=== PATIENT | female | born 1970 | race Caucasian/White ===

== ENCOUNTER 2021-11-10 15:53 | Emergency (ER) | payer OTHER, SELFPAY ==
[2021-11-10] VITALS (22 sets, daily range): BP systolic 136–168; BP diastolic 78–111; PULSE 78–93; RESP 13–21; TEMP 36.7–36.9; O2SAT 92–100
--- NOTE | 2021-11-10 16:14 | ECG_ITS ---
Measurements Intervals [place] Rate: 91 P: 49 WY: 179 QRS: -8 QRSD: 93 T: 87 QT: 331 QTc: 409 Interpretive Statements SINUS RHYTHM DELAYED PRECORDIAL R/S TRANSITION BORDERLINE ST-T WAVE ABNORMALITY- LAT/HIGH LAT LEADS BORDERLINE ECG NO PREVIOUS ECG AVAILABLE FOR COMPARISON Electronically Signed On 11-11-2021 8:25:35 CDT by Gerard Cartagena D.O.
[2021-11-10 16:58] LABS: Basophils Percent Auto 0.2 % (0.2-1.2); Hematocrit 39.8 % (37.0-47.0); Hemoglobin 13.1 g/dL (12.0-15.0); Immature Granulocyte Absolute 0.08 K/mm3 (0.00-0.031); Immature Granulocyte Percent A 0.6 % (0-0.5); Lymphocytes Absolute Auto 1.39 K/mm3 (0.9-3.2); Lymphocytes Percent Auto 9.7 % (18.3-44.2); Mean Corpuscular HGB Conc 32.9 g/dl (32-36); Mean Corpuscular Hemoglobin 30.8 pg (26-34); Mean Corpuscular Volume 93.4 fl (80-100); Mean Platelet Volume 10.7 fl (7.4-10.4); Monocytes Absolute Auto 0.7 K/mm3 (0.1-0.6); Monocytes Percent Auto 4.8 % (2.6-8.5); Neutrophils Absolute Auto 12.1 K/mm3 (1.3-6.7); Neutrophils Percent Auto 84.7 % (45.5-73.1); Platelet Count Result 200 k/mm3 (150-375); Red Blood Count 4.26 M/mm3 (4.2-5.4); Red Cell Distribution Width 12.9 % (11.5-14.5); White Blood Count 14.3 K/mm3 (4.5-10.0)
--- NOTE | 2021-11-10 17:14 | ED.EXTPRO ---
HPI - Extremity Problem General Chief complaint: Extremity Problem,Nontraumatic Stated complaint: right leg pain, tingling Time Seen by Provider: 11/10/21 17:00 History of Present Illness HPI Narrative: 51-year-old female with a history of lupus and thyroid disease presents the emergency room for complaints of right lower extremity pain for 10 days and numbness and tingling to her right hand that began this morning. Patient denies any injury or trauma. Patient reports gradual onset of the right lower extremity pain, that has prevented her from ambulating without assistance. Patient does have a history of a DVT, occurred about 8 years ago when she completed a 6month anticoagulant therapy. Patient states her right lower extremity was swollen and red this morning prior to Tylenol administration. Patient also complains of numbness and tingling to all 5 of her fingers on her right hand that radiate into her her elbow. Related Data Allergies Allergy/AdvReac Type Severity Reaction Status Date / Time aspirin Allergy Unknown Nausea and Verified 11/10/21 16:13 Vomiting Review of Systems Review of Systems: CONSTITUTIONAL: Denies fever, chills, or sweats. EYES: Denies visual changes, redness, or discharge. ENT: Denies rhinorrhea, congestion, sore throat, or otalgia. CARDIOVASCULAR: Denies chest pain, palpitations, or edema. RESPIRATORY: Denies cough or dyspnea. GASTROINTESTINAL: Denies abdominal pain, nausea, vomiting, or diarrhea. GENITOURINARY: Denies dysuria or hematuria. SKIN: Denies rash or itching. MUSCULOSKELETAL: Reports right lower extremity pain NEUROLOGIC: Reports paresthesias in right hand PSYCHIATRIC: Denies anxiety or depression. Exam Narrative: GENERAL: Well-appearing, well-nourished, no physical limitations, and in no acute distress. HEAD: Normocephalic, atraumatic. EYES: Conjunctivae normal, PERRLA and EOMI. CHEST: Clear to auscultation. No respiratory distress. No wheezes rales or rhonchi. No tenderness. HEART: Regular rate and rhythm. No murmur heard. Normal peripheral pulses. ABDOMEN: Soft, nontender, morbidly obese, normal active bowel sounds. EXTREMITIES: Right lower extremity: Tenderness along the medial surface of the calf, lower extremity is mildly erythematous, pulses are present distally no edema SKIN: Warm, dry, no rash. NEURO: No focal deficits. Alert and oriented x3. MAEW. CN's II-XI intact bilaterally PSYCH: Cooperative. Normal mood and affect. Course Vital Signs Vital signs: Vital Signs Temperature 36.9 C 11/10/21 16:04 Pulse Rate 93 11/10/21 16:04 Respiratory Rate 14 11/10/21 16:04 Blood Pressure 152/85 H 11/10/21 16:04 Pulse Oximetry 96 11/10/21 16:04 Oxygen Delivery Room Air 11/10/21 16:04 Temperature 36.8 C 11/10/21 19:15 Pulse Rate 80 11/10/21 19:15 Respiratory Rate 16 11/10/21 19:15 Blood Pressure 154/111 H 11/10/21 19:15 Pulse Oximetry 96 11/10/21 19:15 Oxygen Delivery Room Air 11/10/21 16:04 MDM - Extremity (Nontraumatic) MDM Narrative Medical decision making narrative: 51-year-old female presented the emergency room with complaints of right lower leg pain. Patient has a history of DVTs and uncontrolled lupus. WBC was elevated as was the D-dimer. Ultrasound was unavailable so we will cover patient with Keflex and Eliquis until ultrasound can be obtained. Lab Data Result diagrams: 11/10/21 16:53 11/10/21 16:53 Labs: Lab Results 11/10/21 11/10/21 11/10/21 Range/Units 16:52 16:52 16:53 WBC 14.3 H (4.5-10.0) K/mm3 RBC 4.26 (4.2-5.4) M/mm3 Hgb 13.1 (12.0-15.0) g/dL Hct 39.8 (37.0-47.0) % MCV 93.4 (80-100) fl MCH 30.8 (26-34) pg MCHC 32.9 (32-36) g/dl RDW 12.9 (11.5-14.5) % Plt Count 200 (150-375) k/mm3 MPV 10.7 H (7.4-10.4) fl Immature Gran % (Auto) 0.6 H (0-0.5) % Neut % (Auto) 84.7 H (45.5-73.1) % Lymph % (Auto) 9.7 L (18.3-44.2) % Mo
[2021-11-10 17:17] LABS: Alanine Aminotransferase 17 U/L (6-35); Albumin Level 4.1 g/dL (3.5-5.1); Alkaline Phosphatase 100 U/L (38-126); Anion Gap 5 mmol/L (8-16); Aspartate Amino Transferase 22 U/L (14-36); Bilirubin,Total 1.7 mg/dL (0.2-1.3); Blood Urea Nitrogen 11 mg/dL (7-17); Calcium 8.6 mg/dL (8.4-10.2); Carbon Dioxide 33 mmol/L (22-30); Chloride 97 mmol/L (98-107); Estimated CRCL calculation 95 ml/min; Estimated Glomerular Filt Rate > 60; Glucose 112 mg/dL (65-110); Potassium 3.5 mmol/L (3.4-5.0); Sodium 135 mmol/L (137-145)
[2021-11-10 17:57] LABS: CRP 24.2 mg/dL (<1.0)
[2021-11-10 18:14] LABS: Appearance Urine Clear (Clear); Bilirubin Urine Negative (Negative); Blood Urine Negative (Negative); Color Urine Yellow (Yellow); Glucose Urine UA Negative (Negative); Ketones Urine Negative (Negative); Leukocyte Esterase Ur Negative LEU/UL (Negative); Nitrate Urine Negative (Negative); Protein Urine Trace mg/dL (Negative); Specific Grav Ur <= 1.005 (1.001-1.035); Urobilinogen Urine 0.2 mg/dL (<2.0)
[2021-11-10 18:29] LABS: D Dimer 0.72 ug/mL (<0.48)
[2021-11-10 18:38] LABS: Add Urine Microscopic? YES
[2021-11-10 18:39] LABS: RBC Urine None seen /hpf (0-2); WBC Urine 0-3 /hpf
[2021-11-10 18:40] LABS: Bacteria Urine Trace /hpf; Squamous Epithelial Cell Urine Few /hpf (Few)
[2021-11-10 18:51] LABS: Erythrocyte Sedimentation Rate 44 mm/hr (0-20)
[2021-11-10 19:18] LABS: Lactic Acid Reflex 0.6 mmol/L (0.7-2.0)
[2021-11-10] MEDS: methylPREDNISolone SOD SUCC 125 MG VIAL IV PUSH (19:41)
[2021-11-10] MEDS: APIXABAN 5 MG TABLET PO (20:25)
--- NOTE | 2021-11-10 20:38 | PC.NURSE ---
rx for US sent home with patient. pt informed she needed to bring with to US.
== END 2021-11-10 20:39 | disposition home or self-care (01) ==
PROVIDERS: Emergency Medicine; Emergency Provider Nurse Practitioner Family; PCP Family Medicine
DX: R60.0 Localized edema (principal)
CPT/HCPCS: 36415; 51701; 80053; 81001; 83605; 85025; 85380; 85652; 86140; 93005; 96365; 96375; 99284; A9270; J0696; J2930

== ENCOUNTER 2021-11-12 06:49 | Outpatient (CLI) | payer OTHER, SELFPAY ==
--- NOTE | ~2021-11-12 | US_ITS ---
EXAMINATION: US venous doppler LE RT DATE: 11/12/2021 08:38 INDICATION: Right lower limb pain and paresthesias TECHNIQUE: Grayscale ultrasound images without and with compression and Doppler ultrasound images of the right lower extremity veins were obtained. COMPARISON: None. FINDINGS: The visualized portions of right common femoral vein, profunda (deep) femoral vein, femoral vein, pop liteal vein, peroneal trunk, posterior tibial veins, peroneal veins, gastrocnemius vein and greater s aphenous vein outflow are patent. IMPRESSION: 1. No deep venous thrombosis in the right lower limb. Reviewed, dictated and finalized at location A.
== END 2021-11-12 06:50 | disposition home or self-care (01) ==
PROVIDERS: PCP Family Medicine; Visit Provider Family Medicine
DX: R22.41 Localized swelling, mass and lump, right lower limb (principal); R20.2 Paresthesia of skin
CPT/HCPCS: 93971

== ENCOUNTER 2021-12-30 14:03 | Outpatient (CLI) | payer OTHER, SELFPAY ==
--- NOTE | ~2021-12-30 | US_ITS ---
US thyroid INDICATION: Unspecified disorder of the thyroid gland TECHNIQUE: Real-time sonographic images of the thyroid gland were obtained. COMPARISON: No prior studies for comparison. FINDINGS: The right thyroid lobe measures 5 x 2.1 x 1.8 cm. The left thyroid lobe measures 4.2 x 2 x 1.6 cm. Thyroid gland is diffusely heterogeneous, although no discrete mass identified. There is inc reased vascularity in both lobes. IMPRESSION: 1. Mildly prominent heterogeneous thyroid gland with increased vascularity, most likely multinodular goiter. No discrete mass.. Reviewed, dictated and finalized at location B. IMPRESSION: 1. Mildly prominent heterogeneous thyroid gland with increased vascularity, mo st likely multinodular goiter. No discrete mass..
== END 2021-12-30 14:04 | disposition home or self-care (01) ==
PROVIDERS: PCP Family Medicine; Visit Provider Physician Assistant
DX: E07.9 Disorder of thyroid, unspecified (principal); E04.9 Nontoxic goiter, unspecified
CPT/HCPCS: 76536

== ENCOUNTER 2022-01-03 00:39 | Day surgery (SDC) | payer OTHER, SELFPAY ==
[2021-12-19 14:49] VITALS: BMI 54.3
[2022-01-03 06:30] VITALS: BP 180/100; PULSE 79; RESP 18; TEMP 36.2; O2SAT 95
[2022-01-03] MEDS: LACTATED RINGERS 1,000 ML 150 ML IV CONT (06:40)
--- NOTE | 2022-01-03 07:24 | WPDANESEPPF ---
Anes - Initial Pre Proc Eval Procedure: Operation Date: 01/03/22 07:30 Proposed Procedures p Screening Colonoscopy - Artemio Tolentino MD Date/Time: 01/03/22 07:24 Surgeon: Artemio Tolentino MD Pre Op Diagnosis: neoplasm screening Patient Data Age: 51 Gender: F Height: 1.6 m Weight: 138.6 kg Last Vital Signs Temp 97.1 F L 01/03/22 06:30 Pulse 79 01/03/22 06:30 Resp 18 01/03/22 06:30 BP 180/100 H 01/03/22 06:30 Pulse Ox 95 01/03/22 06:30 O2 Del Method Room Air 01/03/22 06:30 Allergies Allergy/AdvReac Type Severity Reaction Status Date / Time aspirin Allergy Unknown Nausea and Verified 01/03/22 06:26 Vomiting Home Medications Medication Instructions Recorded Confirmed Type diphenoxylate-atropine 2.5 1 tablet PO TID PRN diarrhea #90 12/23/21 01/03/22 Rx mg-0.025 mg tablet (Lomotil) tabs lisinopril 10 mg tablet 10 mg PO DAILY #90 tabs 12/25/21 01/03/22 Rx levothyroxine 100 mcg tablet 100 mcg PO DAILY #30 tabs 12/27/21 01/03/22 Rx Patient hx anesthesia problems: none Family hx anesthesia problems: none Results Review: All pre-operative results and documents have been reviewed as part of the pre-operative evaluation. [facility] Family History Family History Mother Hypertension Family history of elevated blood lipids Family history of diabetes mellitus in first degree relative Family history of renal failure, Onset Age: 79 Patient's mother is Social History Social History Social History: Smoking status: Former smoker Second hand tobacco smoke exposure: No Smoking end date: 03/09/15 Alcohol intake: never Substance use: never Substance use type: does not use Living arrangements: with family Additional occupation/education comments: Disabled Gender identity (if verbalized by the patient): Female Sexual Orientation (if Verbalized by the Patient): Straight or Heterosexual Spiritual care concerns: No Anes - Eval Final PreProcedure Day of Procedure 01/03/22 07:24 Patient weight: super morbidly obese Heart: regular rate and rhythm Lungs: clear to auscultation Airway: Mallampati scale class III Neurological: alert and oriented Last oral intake: >/= 8 hours ASA classification: IV Emergent: no Anesthetic plan: proceed Anesthesia type and monitoring: general GIVS and standard monitoring Results Review: All pre-operative results and documents have been reviewed as part of the pre-operative evaluation. Informed Consent: The patient's anesthetic plan and its attendant risks and benefits were discussed with the patient/family/POA. Questions were solicited and answers provided to the satisfaction of the patient/family/POA.
--- NOTE | 2022-01-03 07:24 | PM.HPGS ---
History of Present Illness History of Present Illness Consent: Risks, benefits, and alternatives have been discussed and questions answered. Patient agrees to proceed with procedure. Chief complaint: neoplasm screening Narrative: Praveena Mckenzie is a 51 year old female here for screening colonoscopy Review of Systems Constitutional: Constitutional: Denies headache(s) and Denies weakness Eyes: Eyes: Denies blurry vision ENT: Reports Normal hearing present, Denies headache(s) and Denies neck pain Cardiovascular: Cardiovascular: Denies chest pain and Denies dyspnea Respiratory: Respiratory: Denies dyspnea Gastrointestinal: Gastrointestinal: Reports no additional gastrointestinal complaints Genitourinary: Genitourinary: Denies dysuria Musculoskeletal: Musculoskeletal: Denies neck pain Integumentary/Breasts: Skin/Breast: Denies dry skin Neurologic: Reports Normal hearing present, Denies headache(s) and Denies weakness Psychiatric: Psychiatric: Denies anxiety Endocrine: Endocrine: Denies change in body appearance Hematologic/Lymphatic: Hematologic/Lymphatic: Denies easy bleeding Allergic/Immunologic: Allergic/Immunologic: Denies urticaria PMFSH Family History Family History Mother Hypertension Family history of elevated blood lipids Family history of diabetes mellitus in first degree relative Family history of renal failure, Onset Age: 79 Patient's mother is Social History Social History Social History: Smoking status: Former smoker Second hand tobacco smoke exposure: No Smoking end date: 03/09/15 Alcohol intake: never Substance use: never Substance use type: does not use Living arrangements: with family Additional occupation/education comments: Disabled Gender identity (if verbalized by the patient): Female Sexual Orientation (if Verbalized by the Patient): Straight or Heterosexual Spiritual care concerns: No Meds Home Medications and Allergies Home Medications Medication Instructions Recorded Confirmed Type diphenoxylate-atropine 2.5 1 tablet PO TID PRN diarrhea #90 12/23/21 01/03/22 Rx mg-0.025 mg tablet (Lomotil) tabs lisinopril 10 mg tablet 10 mg PO DAILY #90 tabs 12/25/21 01/03/22 Rx levothyroxine 100 mcg tablet 100 mcg PO DAILY #30 tabs 12/27/21 01/03/22 Rx Allergies Allergy/AdvReac Type Severity Reaction Status Date / Time aspirin Allergy Unknown Nausea and Verified 01/03/22 06:26 Vomiting Vital Signs Vital Signs - 24 hr 01/03/22 06:30 Temperature 97.1 F L Pulse Rate 79 Respiratory Rate 18 Blood Pressure 180/100 H Pulse Oximetry 95 Oxygen Delivery Room Air Exam Const: General: comfortable and no acute distress HENMT: Face/Nose/Sinus: Normal nares present Eyes: General: appearance normal, both eyes and all related structures Neck: Neck: no JVD Resp: Auscultation: clear to auscultation bilaterally Cardio: Rate: regular rate Rhythm: regular rhythm GI: Inspection: non-distended GI Palp: Yes Soft to palpation Skin: General skin exam: normal color Neuro: General: gait normal Speech: normal speech Extrem: General: normal to inspection Psych: Mental Status: mental status grossly normal Assessment and Plan Assessment and plan (1) Colon cancer screening: Code(s): Z12.11 - Encounter for screening for malignant neoplasm of colon Status: Acute Assessment and Plan: colonoscopy
[2022-01-03 07:51] VITALS: BP 153/93; PULSE 75; RESP 21; O2SAT 100
[2022-01-03 08:01] VITALS: BP 173/108; PULSE 76; RESP 14; O2SAT 100
[2022-01-03 08:11] VITALS: BP 187/118; PULSE 73; RESP 18; O2SAT 100
== END 2022-01-03 08:17 | disposition home or self-care (01) ==
PROVIDERS: PCP Family Medicine; Visit Provider Internal Medicine Gastroenterology
PROC: 0DJD8ZZ Inspection of Lower Intestinal Tract, Via Natural or Artificial Opening Endoscopic (ICD-10-PCS; CPT 45378; principal; 2022-01-03 07:30)
DX: Z12.11 Encounter for screening for malignant neoplasm of colon (principal); K57.30 Diverticulosis of large intestine without perforation or abscess without bleeding; D12.4 Benign neoplasm of descending colon; K64.8 Other hemorrhoids; Z87.891 Personal history of nicotine dependence; E66.01 Morbid (severe) obesity due to excess calories; Z68.43 Body mass index [BMI] 50.0-59.9, adult
CPT/HCPCS: 45385; 88305; J2704; J7120

== ENCOUNTER 2022-05-04 17:24 | Inpatient (IN) | payer OTHER, SELFPAY ==
[2022-05-04] VITALS (8 sets, daily range): BP systolic 116–168; BP diastolic 82–97; PULSE 103–119; RESP 18–20; TEMP 36.8–39.4; O2SAT 87–99
--- NOTE | ~2022-05-04 | CT_ITS ---
EXAMINATION: CTA brain carotid DATE: 05/07/2022 10:26 INDICATION: Left facial swelling and pain. Weakness. TECHNIQUE: Computed tomographic angiography (CTA) of the head was performed without and with 100 mL O mnipaque-350 intravenous contrast. CTA of the neck was performed with intravenous contrast. Automated exposure control and iterative reconstruction technique were employed. The dose-length product was 1 771.58 mGy-cm. Maximum intensity projection and volume rendered 3D-reconstructions were created by susana sandoval technologist on a separate workstation. COMPARISON: Head CT 05/04/2022, brain MRI 05/07/2022 FINDINGS: HEAD CTA: There is no intracranial hemorrhage, acute infarction, or abnormal intracranial mass lesion . The ventricles are normal in size. The orbits are normal. The paranasal sinuses are clear. The mast oid air cells are normal. The vertebral arteries are codominant. There is no significant stenosis of basilar artery or the posterior cerebral arteries. There is no significant stenosis of the intracrani al internal carotid arteries or anterior or middle cerebral arteries. Anterior communicating artery i s normal. Posterior communicating arteries are not identified. There is no aneurysm. NECK CTA: There is mild scarring at left lung apex. There are two 3 mm nodules in right upper lobe, l ikely benign. There are no pathologically enlarged lymph nodes. There is subcutaneous fat stranding i n the left posterior neck and inferior to the left ear, consistent with edema versus inflammation. Th ere is no significant stenosis of the vertebral arteries. There is mild plaque in the proximal programming intern al carotid arteries. There is 0% stenosis of the proximal right internal carotid artery relative to normal distal artery lumen diameter (NASCET criteria). There is 0% stenosis of the proximal left inte rnal carotid artery relative to normal distal artery lumen diameter. There is mild cervical spondylos is. IMPRESSION: 1. Normal brain. 2. No aneurysm or significant intracranial arterial stenosis. 3. 0% stenosis of the proximal internal carotid arteries relative to normal distal artery lumen diame ters (NASCET criteria). Reviewed, dictated and finalized at location A. IAGE AND FAMILY THERAPIST IMPRESSION: 1. Normal brain. 2. No aneurysm or significant intracranial arterial stenosis. 3. 0% stenosis of the proximal internal carotid arteries relative to normal dis migue artery lumen diameters (NASCET criteria).
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
--- NOTE | ~2022-05-04 | MR_ITS ---
EXAMINATION: MR orbits face neck wo/w con DATE: 05/09/2022 13:54 INDICATION: Left eye blurry vision. TECHNIQUE: Magnetic resonance imaging (MRI) of the orbits was performed without and with 20 mL MultiH ance intravenous contrast. COMPARISON: Brain MRI 05/07/2022 FINDINGS: The extraocular muscles, optic nerves, optic chiasm, and ocular globes are normal. There is no abnormal mass. IMPRESSION: 1. Normal orbits. Reviewed, dictated and finalized at location A. L MAINFRAME DEVELOPER IMPRESSION: 1. Normal orbits.
--- NOTE | ~2022-05-04 | US_ITS ---
EXAMINATION:US venous doppler LE BI INDICATION:Leg pain and swelling TECHNIQUE: Multiple grayscale, color flow and Doppler images of the right and left lower extremity de ep venous systems were obtained and reviewed. COMPARISON:11/12/2021 FINDINGS: The common femoral, superficial femoral and popliteal veins demonstrate normal respiratory variation, augmentation and compressibility. Color flow is also seen within the posterior tibial, gr eater saphenous and profunda veins. The peroneal veins are not well visualized. IMPRESSION: 1: No lower extremity deep venous thrombosis. Reviewed, dictated and finalized at location L. ET MAKING MACHINE OPERATOR HELPER
--- NOTE | ~2022-05-04 | CT_ITS ---
EXAMINATION: CT cervical spine wo con DATE: 05/04/2022 21:21 INDICATION: pain TECHNIQUE: Computed tomography (CT) of the cervical spine was performed without intravenous contrast. Automated exposure control and iterative reconstruction technique were employed. The dose-length pro duct was 533.88 mGy-cm. COMPARISON: None. FINDINGS: Vertebral Body Alignment: Intact. . Craniocervical and atlantoaxial alignment: Moderate degenerative change. Alignment intact. Osseous structures/fracture: No evidence of a lytic or blastic process in the visualized spine. No e vidence of acute fracture. . Cervical soft tissues: The paraspinal soft tissues planes are maintained. Degenerative changes: Degenerative changes, without severe neural foraminal or central canal narrowin g. IMPRESSION: No acute fracture or traumatic malalignment in the cervical spine. Reviewed, dictated and finalized at location K. PROFESSIONAL
--- NOTE | ~2022-05-04 | MR_ITS ---
EXAMINATION: MR venography brain DATE: 05/09/2022 13:54 INDICATION: Headache. Left eye blurry vision. TECHNIQUE: Magnetic resonance venography (MRV) of the head was performed without intravenous contrast . COMPARISON: Brain MRI 05/07/2022, head CTA 05/07/2022 FINDINGS: The superior sagittal sinus, internal cerebral veins, vein of Minesh, straight sinus, transv erse sinuses, oblique sinuses, and internal jugular veins are patent. IMPRESSION: 1. Normal head MRV. Reviewed, dictated and finalized at location A. L CHECKER IMPRESSION: 1. Normal head MRV.
--- NOTE | ~2022-05-04 | MR_ITS ---
MRI of the brain Clinical History: Left-sided weakness Technique: Axial and sagittal T1-weighted images were acquired. These were followed by axial T2-weigh tu, diffusion weighted, gradient, and FLAIR images. Coronal thin cut T1-weighted and T2-weighted adrian ges were performed through the internal auditory canals. Following intravenous administration of 20 c c MultiHance gadolinium, T1-weighted fat-sat imaging was performed through the brain in the axial and coronal planes. Thin cut T1-weighted coronal and axial postcontrast imaging was also performed throu gh the internal auditory canals. Findings: No acute infarct, intracranial hemorrhage, or mass lesion identified. There are minimal chr onic white matter changes in the periventricular white matter. Ventricles and subarachnoid spaces are unremarkable. Orbits are unremarkable. Paranasal sinuses and m astoid air cells are clear. Major intracranial flow voids are grossly intact. Sagittal midline structures are intact. No abnormal mass lesion seen at the cerebellar pontine angle regions or internal auditory canals. No abnormal postcontrast enhancement seen. IMPRESSION: No intracranial hemorrhage, mass lesion, or acute infarct. Unremarkable internal auditory canals and CP angle regions. Minimal chronic white matter changes. Reviewed, dictated and finalized at location M. ING MACHINE OPERATOR IMPRESSION: No intracranial hemorrhage, mass lesion, or acute infarct. Unremarkable interna l auditory canals and CP angle regions. Minimal chronic white matter changes.
--- NOTE | ~2022-05-04 | XR_ITS ---
EXAM: XR humerus LT DATE: 05/04/2022 20:56 HISTORY: HIT HEAD ON CAR DOOR 3 DAYS AGO. SATES LT SIDE OF BODY HURTS . COMPARISON: None available. FINDINGS: Normal mineralization. No fracture or dislocation. No lytic or blastic lesion. Moderate AC joint hypertrophy, mild degenerative changes in the glenohumeral joint and elbow joint. No erosion o r periosteal change. Soft tissues within normal limits. IMPRESSION: No acute osseous finding in the left humerus. Reviewed, dictated and finalized at location K. FARM HELPER
--- NOTE | ~2022-05-04 | CT_ITS ---
EXAMINATION: CT brain wo con DATE: 05/04/2022 21:21 INDICATION: head injury, headache . TECHNIQUE: Computed tomography (CT) of the head was performed without intravenous contrast. The mA wa s adjusted according to patient size. Iterative reconstruction technique was employed. The dose-lengt h product was 605.33 mGy-cm. COMPARISON: None. FINDINGS: No acute intracranial hemorrhage or extra-axial fluid collection. No hydrocephalus, mass, or herniation. No acute ischemic infarct. Unremarkable dural venous sinus attenuation. No acute osseous abnormality. The aerated spaces are clear. IMPRESSION: No acute intracranial process. Reviewed, dictated and finalized at location K. OENGRAVING MACHINE OPERATOR/TENDER
--- NOTE | 2022-05-04 20:41 | PC.NURSE ---
Pt to imaging via stretcher at this time.
--- NOTE | 2022-05-04 21:02 | ED.GENADULT ---
HPI - General Adult General Chief complaint: Extremity Injury, Upper Stated complaint: shoulder and ear pain Time Seen by Provider: 05/04/22 20:09 Source: patient and RN notes reviewed Mode of arrival: wheelchair Limitations: no limitations History of Present Illness HPI narrative: This is a 52 year old female with history of morbid obesity who presents for evaluation of left side pain . Patient reports that 3 days ago her car door accidentally hit her head. She reports she initially felt fine other than mild headache. She reports she had some mild left shoulder pain. Today she has noticed left ear lobe pain and swelling. She also reports she is unable to move with out significant pain to her left shoulder today. She denies nausea, vomiting, sore throat, abdominal pain, fever or chills. She denies back pain and leg pain. Related Data Allergies Allergy/AdvReac Type Severity Reaction Status Date / Time aspirin AdvReac Unknown Nausea and Verified 05/05/22 13:28 Vomiting Review of Systems Constitutional: Constitutional: Denies weakness Cardiovascular: Cardiovascular: Denies syncope, Denies rapid heart rate, Denies irregular heart rhythm, Denies leg edema and Denies dyspnea Respiratory: Respiratory: Denies chest congestion, Denies hemoptysis, Denies excessive phlegm production and Denies dyspnea Gastrointestinal: Gastrointestinal: Denies abdominal pain, Denies hematochezia, Denies diarrhea and Denies vomiting Genitourinary: Genitourinary: Denies hematuria and Denies dysuria Musculoskeletal: Musculoskeletal: Reports myalgias (left side ), Reports arthralgias, Denies joint swelling, Denies loss of height and Denies muscle weakness Neurologic: Denies syncope, Reports headache(s), Denies focal weakness and Denies weakness [facility] Past Medical History Medical History Goiter Hypertension Lupus (systemic lupus erythematosus) Lymphedema Postcholecystectomy diarrhea Surgical History Surgical History Hx laparoscopic cholecystectomy Family History Family History Mother Hypertension Family history of elevated blood lipids Family history of diabetes mellitus in first degree relative Family history of renal failure, Onset Age: 79 Patient's mother is Social History Social History Social History: Smoking packs per day: 2,021 Smoking cigarettes per day: 40,420.0 Smoking status: Former smoker Second hand tobacco smoke exposure: No Smoking end date: 03/09/15 Alcohol intake: never Substance use: never Substance use type: does not use Lack of Transportation: No Lack of Food: Never True Current Housing: I Have Housing Concerned About Future Housing: No Difficulty Paying Gas/Electric Bills: No Difficulty Paying for Meds: No Currently Unemployed: No Education: High School Diploma/GED Difficulty w/ Childcare or Family Care: No Living arrangements: with family Occupation/Education: unemployed Additional occupation/education comments: Disabled Gender identity (if verbalized by the patient): Female Sexual Orientation (if Verbalized by the Patient): Straight or Heterosexual Spiritual care concerns: No Exam Const: General: alert Nutritional Appearance: obese Orientation/consciousness: patient oriented x3 Limitations: no limitations HENMT: Ears: TM's normal bilaterally and Abnormal EAC present erythema on the left (pinna, the canal is clear, no erythema, no ) Mouth: Yes Normal oral and palatal mucosa present, Yes lip normal and Yes moist mucous membranes Teeth and gingiva: dentition normal Throat: posterior oropharynx normal and uvula midline Other: mild redness to left cheek, small ulceration noticed to left posterior scalp Eye
--- NOTE | 2022-05-04 21:08 | PC.NURSE ---
Pt to CT via stretcher at this time.
[2022-05-04 21:12] LABS: Basophils Percent Auto 0.2 % (0.2-1.2); Hematocrit 40.4 % (37.0-47.0); Hemoglobin 13.6 g/dL (12.0-15.0); Immature Granulocyte Absolute 0.05 K/mm3 (0.00-0.031); Immature Granulocyte Percent A 0.5 % (0-0.5); Lymphocytes Absolute Auto 0.69 K/mm3 (0.9-3.2); Lymphocytes Percent Auto 7.2 % (18.3-44.2); Mean Corpuscular HGB Conc 33.7 g/dl (32-36); Mean Corpuscular Hemoglobin 31.1 pg (26-34); Mean Corpuscular Volume 92.2 fl (80-100); Mean Platelet Volume 10.2 fl (7.4-10.4); Monocytes Absolute Auto 0.5 K/mm3 (0.1-0.6); Monocytes Percent Auto 5.6 % (2.6-8.5); Neutrophils Absolute Auto 8.3 K/mm3 (1.3-6.7); Neutrophils Percent Auto 86.5 % (45.5-73.1); Platelet Count Result 202 k/mm3 (150-375); Red Blood Count 4.38 M/mm3 (4.2-5.4); Red Cell Distribution Width 12.1 % (11.5-14.5); White Blood Count 9.6 K/mm3 (4.5-10.0)
[2022-05-04 21:23] LABS: Alanine Aminotransferase 25 U/L (6-35); Albumin Level 4.4 g/dL (3.5-5.1); Alkaline Phosphatase 123 U/L (38-126); Anion Gap 6 mmol/L (8-16); Aspartate Amino Transferase 27 U/L (14-36); Bilirubin,Total 1.4 mg/dL (0.2-1.3); Blood Urea Nitrogen 10 mg/dL (7-17); Calcium 8.6 mg/dL (8.4-10.2); Carbon Dioxide 28 mmol/L (22-30); Chloride 100 mmol/L (98-107); Estimated Glomerular Filt Rate > 60; Glucose 114 mg/dL (65-110); INR 1.1; Potassium 3.8 mmol/L (3.4-5.0); Prothrombin Time 14.1 Seconds (11.1-14.7); Sodium 134 mmol/L (137-145)
[2022-05-04 21:24] LABS: Partial Thromboplastin Time 27.1 SECONDS (22.3-36.8)
[2022-05-04] MEDS: ONDANSETRON INJ 4 MG/2 ML VIAL IV PUSH (21:37)
[2022-05-04] MEDS: MORPHINE SULFATE (*CRX) 4 MG/ML INJ IV PUSH (21:37)
--- NOTE | 2022-05-04 22:49 | PM.IMHP ---
H&P: HPI History of Present Illness Date/Time: 05/04/22 22:49 Chief Complaint: Left hemicrania pain Narrative: This is a 52-year-old female with past medical history significant for morbid obesity, hypertension, hypothyroidism. Patient presents to the emergency room due to left hemicrania pain with extension into ear lobe and neck with redness, warmth, tenderness, upon touch in that area this is of 1 day duration. Patient had a fever, denies any odynophagia, or sore throat, no night sweats, no nausea, no vomiting, no abdominal pain, no diarrhea, up or sputum production. Preliminary workup was significant for CT of the head was reported as: COMPARISON: None. FINDINGS: No acute intracranial hemorrhage or extra-axial fluid collection. No hydrocephalus, mass, or herniation. No acute ischemic infarct. Unremarkable dural venous sinus attenuation. No acute osseous abnormality. The? aerated spaces are clear. IMPRESSION:? No acute intracranial process. Review of Systems Review of Systems: Left-sided hemicrania pain with extension into the ER lobe with redness, tenderness and warmth and swelling. Constitutional: Constitutional: Denies chills, Reports fever(s), Denies malaise and Denies weakness Eyes: Eyes: Denies change in vision ENT: Denies dysphagia, Denies hearing loss, Denies nasal congestion, Denies nasal discharge and Denies odynophagia Cardiovascular: Cardiovascular: Denies chest pain, Denies leg edema and Denies palpitations Respiratory: Respiratory: Denies chest congestion, Denies cough and Denies pain on inspiration Gastrointestinal: Gastrointestinal: Denies abdominal pain, Denies dyspepsia, Denies diarrhea, Denies nausea and Denies vomiting Genitourinary: Genitourinary: Denies dysuria Musculoskeletal: Musculoskeletal: Denies back pain, Denies joint swelling and Denies muscle weakness Integumentary/Breasts: Skin/Breast: Reports erythema, Denies rash, Reports skin pain (Left hemicrania earlobe and neck) and Reports skin swelling Neurologic: Denies vertigo, Denies dizziness, Denies focal weakness and Denies Sensory deficit (Neuro) Psychiatric: Psychiatric: Reports no additional psychiatric complaints and Reports as per HPI Endocrine: Endocrine: Denies cold intolerance, Denies flushing, Denies heat intolerance, Denies polyphagia, Denies polydipsia and Denies palpitations Hematologic/Lymphatic: Hematologic/Lymphatic: Reports no additional hematologic/lymphatic complaints and Reports as per HPI Allergic/Immunologic: Allergic/Immunologic: Reports no additional allergic/immunologic complaints and Reports as per HPI [facility] Past Medical History Medical History Goiter Hypertension Lupus (systemic lupus erythematosus) Lymphedema Postcholecystectomy diarrhea Surgical History Surgical History Hx laparoscopic cholecystectomy Family History Family History Mother Hypertension Family history of elevated blood lipids Family history of diabetes mellitus in first degree relative Family history of renal failure, Onset Age: 79 Patient's mother is Social History Social History Social History: Smoking packs per day: 2,021 Smoking cigarettes per day: 40,420.0 Smoking status: Former smoker Second hand tobacco smoke exposure: No Smoking end date: 03/09/15 Alcohol intake: never Substance use: never Substance use type: does not use Lack of Transportation: No Lack of Food: Never True Current Housing: I Have Housing Concerned About Future Housing: No Difficulty Paying Gas/Electric Bills: No Difficulty Paying for Meds: No Currently Unemployed: No Education: High School Diploma/GED Difficulty w/ Childcare or Family Care: No Living arrangements: with family
[2022-05-04 22:53] LABS: Lactic Acid Reflex 0.8 mmol/L (0.7-2.0)
[2022-05-04 22:56] LABS: CRP 8.9 mg/dL (<1.0)
[2022-05-04 23:02] LABS: Appearance Urine Clear (Clear); Bacteria Urine None Seen /hpf; Bilirubin Urine Negative (Negative); Blood Urine Negative (Negative); Color Urine Yellow (Yellow); Glucose Urine UA Negative (Negative); Ketones Urine Trace mg/dL (Negative); Leukocyte Esterase Ur Negative LEU/UL (Negative); Nitrate Urine Negative (Negative); Non Pathogenic Casts 0-2; Protein Urine 1+ mg/dL (Negative); Specific Grav Ur 1.021 (1.001-1.035); Squamous Epithelial Cell Urine None seen /hpf (Few); WBC Urine 0-5 /hpf; pH Urine 6.5 (5.0-9.0)
[2022-05-04 23:15] LABS: Add Urine Microscopic? YES
[2022-05-04 23:18] LABS: Influenza A QL RT-PCR Negative (Negative); Influenza B QL RT-PCR Negative (Negative); SARS-CoV-2 RNA PCR Negative
[2022-05-04] MEDS: ACYCLOVIR SODIUM IVPB 800 MG in DEXTROSE 5% IN WATER 250 ML 266 MG IVPB (23:56)
[2022-05-05] VITALS (9 sets, daily range): BP systolic 116–144; BP diastolic 51–88; PULSE 77–104; RESP 16–20; TEMP 36–36.7; O2SAT 94–99; BMI 54.1
--- NOTE | 2022-05-05 00:36 | ADMGEN ---
This patient, Praveena Mckenzie, was admitted to Medical Room 343-01. Patient/family oriented to hospital policies and general routines including ID bracelet, bed and alarms, visiting hours, pain management, procedures, bathroom and other care routines, personal items, smoking policy, room service/diet, and visiting hours. Information on how to activate the Rapid Response Team has been discussed. Patient/Family are encouraged to report perceived risks to care and to ask questions if they do not understand what they are told or what they should do.
[2022-05-05] MEDS: CIPROFLOXACIN 400 MG/D5W 200ML 200 ML 200 MG IVPB ×3 (01:42→17:56)
[2022-05-05] MEDS: KETOROLAC 30 MG/ML VIAL (*BKC) IV PUSH ×3 (01:46→21:16)
[2022-05-05 05:57] LABS: Basophils Percent Auto 0.3 % (0.2-1.2); Hemoglobin 12.8 g/dL (12.0-15.0); Immature Granulocyte Absolute 0.02 K/mm3 (0.00-0.031); Immature Granulocyte Percent A 0.3 % (0-0.5); Lymphocytes Absolute Auto 1.05 K/mm3 (0.9-3.2); Mean Corpuscular Volume 93.9 fl (80-100); Mean Platelet Volume 10.7 fl (7.4-10.4); Monocytes Absolute Auto 0.6 K/mm3 (0.1-0.6); Monocytes Percent Auto 8.8 % (2.6-8.5); Neutrophils Absolute Auto 5.3 K/mm3 (1.3-6.7); Neutrophils Percent Auto 75.6 % (45.5-73.1); Platelet Count Result 174 k/mm3 (150-375); Red Blood Count 4.26 M/mm3 (4.2-5.4); Red Cell Distribution Width 12.5 % (11.5-14.5)
[2022-05-05 06:21] LABS: Alanine Aminotransferase 24 U/L (6-35); Albumin Level 3.8 g/dL (3.5-5.1); Alkaline Phosphatase 101 U/L (38-126); Anion Gap 3 mmol/L (8-16); Aspartate Amino Transferase 24 U/L (14-36); Bilirubin,Total 1.7 mg/dL (0.2-1.3); Blood Urea Nitrogen 10 mg/dL (7-17); Carbon Dioxide 29 mmol/L (22-30); Chloride 100 mmol/L (98-107); Estimated CRCL calculation 129 ml/min; Estimated Glomerular Filt Rate > 60; Glucose 106 mg/dL (65-110); Potassium 3.6 mmol/L (3.4-5.0); Sodium 132 mmol/L (137-145)
--- NOTE | 2022-05-05 09:15 | PM.IMPN ---
Progress Note: A&P Assessment and Plan (1) HZV (herpes zoster virus) post herpetic neuralgia: Code(s): B02.29 - Other postherpetic nervous system involvement Status: Acute Assessment and Plan: Admit to regular medical floor Started on acyclovir Herpes zoster IgM and IgG pending Continue to monitor Supportive care (2) Malignant otitis externa of left ear: Code(s): H60.22 - Malignant otitis externa, left ear Status: Acute Assessment and Plan: Added ciprofloxacin due to significant swelling and redness and tenderness of left ear Continue to monitor Pain medications ordered Pain with palpation Significant swelling noted to the left ear (3) Hypertension: Code(s): I10 - Essential (primary) hypertension Status: Acute Assessment and Plan: Current BP is 144/73 Continue clonidine Continue to monitor Adjust therapy as indicated (4) Morbid obesity: Code(s): E66.01 - Morbid (severe) obesity due to excess calories Status: Acute Assessment and Plan: Lifestyle and diet modifications (5) Hypothyroidism (acquired): Code(s): E03.9 - Hypothyroidism, unspecified Status: Acute Assessment and Plan: TSH is low and T4 is high Levothyroxine has been titrated down by primary Continue levothyroxine 175mcg Daily Recheck in 6 weeks Time Spent With Patient Time: 54 minutes Time with patient: Greater than 35 minutes Subjective Date/time seen: 05/05/22 14:48 Review of Systems Review of Systems: All systems reviewed & are unremarkable except as noted in HPI and below Exam Narrative: General: well-nourished, well-appearing 78-year-old female, sitting up in bed, comfortable, NARD Neuro: awake, alert and oriented x4, speech clear, no focal neuro deficits noted HEENMT: normocephalic, atraumatic, EOMI, sclerae anicteric, moist oral mucosa, left face is very swollen, redness has dissipated, left ear is twice the size of the right ear Respiratory: Clear to auscultation bilaterally without crackles, rhonchi or wheezes, nonlabored breathing Cardio: regular rate, regular rhythm with S1-S2 Abdomen: nondistended, normoactive bowel sounds, soft, nontender to palpation Extremities: no edema, erythema, or tenderness to palpation, DP pulses 2+ bilaterally Skin: no rashes or lesions, warm and dry Psych: appropriate mood and affect, judgment and insight intact Objective Data Vital Signs Vital Signs: Vital Signs - 24 hr 05/04/22 17:37 05/04/22 20:04 05/04/22 21:45 Temperature 98.3 F Pulse Rate 119 H 112 H Respiratory Rate 18 20 Blood Pressure 152/92 H 168/97 H Pulse Oximetry 99 97 87 L Oxygen Delivery Oxygen Flow Rate 05/04/22 21:51 05/04/22 21:51 05/04/22 22:45 Temperature 103.0 F H Pulse Rate 110 H 113 H Respiratory Rate 20 18 Blood Pressure 134/82 Pulse Oximetry 97 98 98 Oxygen Delivery Nasal Cannula Oxygen Flow Rate 2 05/04/22 22:56 05/04/22 23:33 05/04/22 23:41 Temperature 102.1 F H 100.5 F H Pulse Rate 103 H Respiratory Rate 19 Blood Pressure 116/86 Pulse Oximetry 98 Oxygen Delivery Oxygen Flow Rate 05/05/22 00:41 05/05/22 00:34 05/05/22 03:17 Temperature 97.7 F 96.8 F L Pulse Rate 104 H 87 Respiratory Rate 20 20 Blood Pressure 139/71 116/51 L Pulse Oximetry 99 99 99 Oxygen Delivery Nasal Cannula Oxygen Flow Rate 2 05/05/22 08:00 05/05/22 13:24 05/05/22 13:20 Temperature Pulse Rate 87 Respiratory Rate 16 Blood Pressure 144/73 H Pulse Oximetry 99 98 Oxygen Delivery Nasal Cannula Room Air Oxygen Flow Rate 2 05/05/22 13:56 Temperature 98.1 F Pulse Rate Respiratory Rate Blood Pressure Pulse Oximetry 94 Oxygen Delivery Oxygen Flow Rate Intake/Output Intake/Output: Intake & Output 05/02/22 05/03/22 05/04/22 05/05/22 23:59 23:59 23:59 23:59 Intake Tota
[2022-05-05] MEDS: ACYCLOVIR SODIUM IVPB 800 MG in DEXTROSE 5% IN WATER 250 ML 266 MG IVPB ×2 (10:02→15:16)
[2022-05-05] MEDS: MORPHINE SULFATE (*CRX) 2 MG/ML INJ IV PUSH (13:49)
[2022-05-05] MEDS: lisinopriL 10 MG TABLET PO (15:09)
[2022-05-05] MEDS: FUROSEMIDE 20 MG TABLET PO (15:09)
[2022-05-05] MEDS: cloNIDine HCL 0.2 MG TABLET PO ×2 (15:09→21:14)
[2022-05-05] MEDS: HYDROcodone/acetaminophen (*CRX) 5-325 MG TABLET 1 TAB PO (17:59)
[2022-05-05] MEDS: ACYCLOVIR SODIUM IVPB 800 MG in DEXTROSE 5% IN WATER 250 ML 250 MG IVPB (23:31)
[2022-05-06] VITALS (7 sets, daily range): BP systolic 112–140; BP diastolic 55–73; PULSE 64–75; RESP 16–18; TEMP 36.1; O2SAT 95–99
[2022-05-06] MEDS: CIPROFLOXACIN 400 MG/D5W 200ML 200 ML 200 MG IVPB ×3 (02:28→19:23)
[2022-05-06] MEDS: HYDROcodone/acetaminophen (*CRX) 5-325 MG TABLET 1 TAB PO (04:35)
[2022-05-06 05:42] LABS: Basophils Percent Auto 0.5 % (0.2-1.2); Eosinophils Absolute Auto 0.2 K/mm3 (0-0.3); Eosinophils Percent Auto 3.2 % (0-4.4); Hemoglobin 11.5 g/dL (12.0-15.0); Immature Granulocyte Absolute 0.02 K/mm3 (0.00-0.031); Immature Granulocyte Percent A 0.4 % (0-0.5); Lymphocytes Absolute Auto 1.04 K/mm3 (0.9-3.2); Lymphocytes Percent Auto 18.2 % (18.3-44.2); Mean Corpuscular HGB Conc 32.9 g/dl (32-36); Mean Corpuscular Hemoglobin 30.5 pg (26-34); Mean Corpuscular Volume 92.8 fl (80-100); Mean Platelet Volume 10.7 fl (7.4-10.4); Monocytes Absolute Auto 0.8 K/mm3 (0.1-0.6); Monocytes Percent Auto 13.1 % (2.6-8.5); Neutrophils Absolute Auto 3.7 K/mm3 (1.3-6.7); Neutrophils Percent Auto 64.6 % (45.5-73.1); Platelet Count Result 188 k/mm3 (150-375); Red Blood Count 3.77 M/mm3 (4.2-5.4); Red Cell Distribution Width 12.3 % (11.5-14.5); White Blood Count 5.7 K/mm3 (4.5-10.0)
[2022-05-06 05:54] LABS: Alanine Aminotransferase 30 U/L (6-35); Albumin Level 3.5 g/dL (3.5-5.1); Alkaline Phosphatase 111 U/L (38-126); Anion Gap 2 mmol/L (8-16); Aspartate Amino Transferase 28 U/L (14-36); Blood Urea Nitrogen 13 mg/dL (7-17); Carbon Dioxide 32 mmol/L (22-30); Chloride 98 mmol/L (98-107); Estimated CRCL calculation 129 ml/min; Estimated Glomerular Filt Rate > 60; Glucose 104 mg/dL (65-110); Magnesium 2.1 mg/dL (1.6-2.3); Potassium 3.7 mmol/L (3.4-5.0); Sodium 132 mmol/L (137-145)
[2022-05-06] MEDS: LEVOTHYROXINE SODIUM 100 MCG TABLET PO (06:10)
[2022-05-06] MEDS: LEVOTHYROXINE SODIUM 75 MCG TABLET PO (06:10)
[2022-05-06] MEDS: cloNIDine HCL 0.2 MG TABLET PO ×3 (06:10→22:11)
[2022-05-06] MEDS: ACYCLOVIR SODIUM IVPB 800 MG in DEXTROSE 5% IN WATER 250 ML 266 MG IVPB ×2 (08:28→17:59)
[2022-05-06] MEDS: lisinopriL 10 MG TABLET PO (08:29)
[2022-05-06] MEDS: FUROSEMIDE 20 MG TABLET PO (08:29)
--- NOTE | 2022-05-06 10:01 | PM.IMPN ---
Progress Note: A&P Assessment and Plan (1) HZV (herpes zoster virus) post herpetic neuralgia: Code(s): B02.29 - Other postherpetic nervous system involvement Status: Acute Assessment and Plan: Admit to regular medical floor Continue acyclovir Herpes zoster IgM and IgG pending Continue to monitor Supportive care (2) Malignant otitis externa of left ear: Code(s): H60.22 - Malignant otitis externa, left ear Status: Acute Assessment and Plan: Continue ciprofloxacin due to significant swelling and redness and tenderness of left ear Continue to monitor Pain medications ordered Pain with palpation Significant swelling noted to the left ear Add one time dose of steroid Ear drops ordered CT does not add any abscess or infectious source ENT consulted thank you for your help (3) Hypertension: Code(s): I10 - Essential (primary) hypertension Status: Acute Assessment and Plan: Current BP is 112/55 Continue clonidine Continue to monitor Adjust therapy as indicated (4) Morbid obesity: Code(s): E66.01 - Morbid (severe) obesity due to excess calories Status: Acute Assessment and Plan: Lifestyle and diet modifications (5) Hypothyroidism (acquired): Code(s): E03.9 - Hypothyroidism, unspecified Status: Acute Assessment and Plan: TSH is low and T4 is high Levothyroxine has been titrated down by primary Continue levothyroxine 175mcg Daily Recheck in 6 weeks Time Spent With Patient Time: 52 minutes Time with patient: Greater than 35 minutes Subjective Date/time seen: 05/06/22 10:01 Interval history: 05/06/22 1000 Patient is complaining of pain. Patient stated that her pain is a 9/10. She is also stating that she is having some blurred vision on the left side. Redness seems to be better today. Swelling still pretty significant. Spoke with ID pharmacist who is recommending ear drops. Patient does seem to exhibit more pain when the area is touched even very lightly. Here is really swollen still. Patient denies any chest pain, shortness a breath, nausea, vomiting, diarrhea or constipation. She did state that her headache is mostly on the left side. She also stated that it hurts worse after she eats which is most likely related to chewing. The swelling does go from the hinduism area all the way down the neck. ENT is consulted this time and will come and see the patient. 05/05/22 0915 Patient was complaining of a 10/10 pain. Patient was also stating that her left face was still very swollen and hurt really bad. She denies any chest pain, shortness a breath, nausea, vomiting, diarrhea constipation. She is not complaining of any visual changes or hearing changes at this time. Left ear is quite a bit more swollen than the right ear. 05/04/22? 22:49 This is a 52-year-old female with past medical history significant for morbid obesity, hypertension, hypothyroidism.? Patient presents to the emergency room due to left hemicrania pain with extension into ear lobe and neck with redness, warmth, tenderness, upon touch in that area this is of 1 day duration.? Patient had a fever, denies any odynophagia, or sore throat, no night sweats, no nausea, no vomiting, no abdominal pain, no diarrhea, up or sputum production.? Review of Systems Review of Systems: All systems reviewed & are unremarkable except as noted in HPI and below Exam Narrative: General: well-nourished, well-appearing 52-year-old female, laying in bed, comfortable, NARD Neuro: awake, alert and oriented x4, speech clear, no focal neuro deficits noted HEENMT: normocephalic, atraumatic, EOMI, sclerae anicteric, moist oral mucosa, left face is very swollen, redness has dissipated, left ear is twice the size of the right ear Respiratory: Clear to auscultation bilaterally without crackles, rhonchi or wheez
[2022-05-06] MEDS: NEOMYCIN/POLYMYXIN/HYDROCORT OT SUSP 10 ML BTL (*BKC) 3 DROP EACH EAR (14:00)
[2022-05-06] MEDS: methylPREDNISolone SOD SUCC 125 MG VIAL IV PUSH (14:00)
--- NOTE | 2022-05-06 17:34 | WPDCN ---
Assessment and Plan Assessment and plan (1) Chondritis of external ear: Code(s): H61.039 - Chondritis of external ear, unspecified ear Status: Acute Assessment and Plan: Truly unsure the etiology of the patient's symptoms. Patient's exam is relatively benign other than the left ear edema. Could represent chondritis. Given the burning sensation neuropathic type pain could represent herpes zoster. With concern is that it is multiple different dermatomes including C2-C3 and trigeminal. Agree with current plan IV ciprofloxacin which has great cartilage coverage as well as acyclovir. Recommend around the clock steroids for 2-3 days. With concerning is the patient has blurred vision. Could consider transfer to [facility] for further evaluation treatment multitude of symptoms different parts of the body involved. HPI Data of Consult Date/Time: 05/06/22 17:34 Requesting Physician: Shawna Gutierrez MD Primary Care Provider: Isabel Anna MD Consult Narrative Narrative: Praveena Mckenzie is a 52 year old female Who hit her head then had left difficulty moving the left side of her body left blurred vision left exquisite pain the head and upper torso. Unsure of etiology. Patient has never had shingles. Patient reports that the steroids today help somewhat. Vision is improving. The left side of the face is slightly swollen left ear is exquisitely swollen earlobe especially. Review of Systems Review of Systems: All systems reviewed & are unremarkable except as noted in HPI and below PMFSH Past Medical History Medical History Goiter Hypertension Lupus (systemic lupus erythematosus) Lymphedema Postcholecystectomy diarrhea Surgical History Surgical History Hx laparoscopic cholecystectomy Family History Family History Mother Hypertension Family history of elevated blood lipids Family history of diabetes mellitus in first degree relative Family history of renal failure, Onset Age: 79 Patient's mother is Social History Social History Social History: Smoking packs per day: 2,021 Smoking cigarettes per day: 40,420.0 Smoking status: Former smoker Second hand tobacco smoke exposure: No Smoking end date: 03/09/15 Alcohol intake: never Substance use: never Substance use type: does not use Lack of Transportation: No Lack of Food: Never True Current Housing: I Have Housing Concerned About Future Housing: No Difficulty Paying Gas/Electric Bills: No Difficulty Paying for Meds: No Currently Unemployed: No Education: High School Diploma/GED Difficulty w/ Childcare or Family Care: No Living arrangements: with family Occupation/Education: unemployed Additional occupation/education comments: Disabled Gender identity (if verbalized by the patient): Female Sexual Orientation (if Verbalized by the Patient): Straight or Heterosexual Spiritual care concerns: No Meds Home Medications and Allergies Home Medications Medication Instructions Recorded Confirmed Type lisinopril 10 mg tablet 10 mg PO DAILY #90 tabs 12/25/21 05/05/22 Rx clonidine HCl 0.2 mg tablet 0.2 mg PO Q8H #90 tabs 04/04/22 05/05/22 Rx furosemide 20 mg tablet 20 mg PO QAM #90 tabs 04/04/22 05/05/22 Rx diphenoxylate-atropine 2.5 1 tablet PO TID PRN diarrhea #90 04/14/22 05/05/22 Rx mg-0.025 mg tablet (Lomotil) tabs levothyroxine 175 mcg tablet 175 mcg PO DAILY #30 tabs 05/05/22 05/05/22 Rx Allergies Allergy/AdvReac Type Severity Reaction Status Date / Time aspirin AdvReac Unknown Nausea and Verified 05/05/22 13:28 Vomiting Vital Signs Vital Signs - 24 hr 05/05/22 21:17 05/05/22 21:48 05/05/22 20:00 Temperature 3
[2022-05-06] MEDS: methylPREDNISolone SOD SUCC 40 MG VIAL IV PUSH (22:11)
[2022-05-07] MEDS: KETOROLAC 30 MG/ML VIAL (*BKC) IV PUSH ×2 (00:56→09:02)
[2022-05-07] MEDS: ACYCLOVIR SODIUM IVPB 800 MG in DEXTROSE 5% IN WATER 250 ML 266 MG IVPB ×3 (02:30→18:47)
[2022-05-07] MEDS: MORPHINE SULFATE (*CRX) 2 MG/ML INJ IV PUSH (02:44)
[2022-05-07] MEDS: CIPROFLOXACIN 400 MG/D5W 200ML 200 ML 125 MG IVPB (04:51)
[2022-05-07] MEDS: HYDROcodone/acetaminophen (*CRX) 5-325 MG TABLET 1 TAB PO ×2 (04:58→20:12)
[2022-05-07 05:30] LABS: Basophils Percent Auto 0.2 % (0.2-1.2); Hematocrit 38.3 % (37.0-47.0); Hemoglobin 12.6 g/dL (12.0-15.0); Immature Granulocyte Absolute 0.03 K/mm3 (0.00-0.031); Immature Granulocyte Percent A 0.5 % (0-0.5); Lymphocytes Absolute Auto 0.56 K/mm3 (0.9-3.2); Lymphocytes Percent Auto 9.9 % (18.3-44.2); Mean Corpuscular HGB Conc 32.9 g/dl (32-36); Mean Corpuscular Volume 91.2 fl (80-100); Mean Platelet Volume 10.7 fl (7.4-10.4); Monocytes Absolute Auto 0.1 K/mm3 (0.1-0.6); Monocytes Percent Auto 1.4 % (2.6-8.5); Platelet Count Result 254 k/mm3 (150-375); Red Cell Distribution Width 11.9 % (11.5-14.5); White Blood Count 5.6 K/mm3 (4.5-10.0)
[2022-05-07 05:35] LABS: Alanine Aminotransferase 30 U/L (6-35); Albumin Level 3.9 g/dL (3.5-5.1); Alkaline Phosphatase 115 U/L (38-126); Anion Gap 8 mmol/L (8-16); Aspartate Amino Transferase 25 U/L (14-36); Bilirubin,Total 0.6 mg/dL (0.2-1.3); Blood Urea Nitrogen 15 mg/dL (7-17); Calcium 8.3 mg/dL (8.4-10.2); Carbon Dioxide 29 mmol/L (22-30); Chloride 101 mmol/L (98-107); Estimated CRCL calculation 129 ml/min; Estimated Glomerular Filt Rate > 60; Glucose 208 mg/dL (65-110); Magnesium 2.1 mg/dL (1.6-2.3); Potassium 4.2 mmol/L (3.4-5.0); Sodium 138 mmol/L (137-145)
[2022-05-07 05:37] VITALS: BP 146/74; PULSE 70; RESP 16; O2SAT 92
[2022-05-07] MEDS: LEVOTHYROXINE SODIUM 100 MCG TABLET PO (06:30)
[2022-05-07] MEDS: cloNIDine HCL 0.2 MG TABLET PO ×3 (06:30→21:55)
[2022-05-07] MEDS: LEVOTHYROXINE SODIUM 75 MCG TABLET PO (06:30)
[2022-05-07] MEDS: methylPREDNISolone SOD SUCC 40 MG VIAL IV PUSH ×3 (06:30→21:55)
[2022-05-07] MEDS: lisinopriL 10 MG TABLET PO (08:52)
[2022-05-07] MEDS: FUROSEMIDE 20 MG TABLET PO (08:52)
--- NOTE | 2022-05-07 09:37 | PM.IMPN ---
Progress Note: A&P Assessment and Plan (1) Left facial pain: Code(s): R51.9 - Headache, unspecified Status: Acute Assessment and Plan: Patient presents with significant left facial pain and swelling. Head CT unremarkable with no acute intracranial process and no osseous abnormality with clear aerated spaces Cervical spine CT with no acute fracture, traumatic malalignment, or other abnormal findings Will proceed with CTA of the head and neck to evaluate for any stenosis, clot, and evaluate the facial soft tissues Will also proceed with MRI of the brain to rule out stroke in the setting of intermittent left-sided weakness Differential per ENT includes chondritis of external ear Continue with supportive care (2) Malignant otitis externa of left ear: Code(s): H60.22 - Malignant otitis externa, left ear Status: Acute Assessment and Plan: Patient with significant left ear swelling of the auricle and canal Patient febrile on presentation up to 103.0. Fever resolved. No leukocytosis. Continue IV cipro q8h Continue IV solu medrol 40 mg q8h Appreciate ENT recommendations Await CT/MRI as above (3) HZV (herpes zoster virus) post herpetic neuralgia: Code(s): B02.29 - Other postherpetic nervous system involvement Status: Suspected Assessment and Plan: Seems less likely given no vesicular rash or other cutaneous findings and not in typical dermatomal distribution Patient has been started on acyclovir which will continue at this time pending further workup Herpes zoster IgM and IgG pending Supportive care (4) Hypertension: Code(s): I10 - Essential (primary) hypertension Status: Acute Assessment and Plan: Blood pressures are stable. Last BP 146/74 Continue home clonidine, lisinopril, and furosemide Monitor BP trends (5) Hypothyroidism (acquired): Code(s): E03.9 - Hypothyroidism, unspecified Status: Acute Assessment and Plan: TSH is low at 0.14and T4 is elevated at 2.2 Levothyroxine has been titrated down by primary Continue levothyroxine 175mcg Daily Recheck in 6 weeks Plan Discussed case with Radiology and supervising physician Time Spent With Patient Time: 50 minutes Time with patient: Greater than 35 minutes Subjective Date/time seen: 05/07/22 09:37 Interval history: Date of service: 05/07/2022 Praveena Mckenzie is a 52-year-old female with a history of hypertension, SLE, and hypothyroidism who is seen in follow-up for left facial pain and swelling. The patient states that she hit her head on a car door 6 days ago. She later developed a knot on her head and then left-sided head and facial pain. She then noticed difficulty with movement on her left side and pain that went down to left arm. She states that she had a bad night last night due to frequent episodes of pain. She does note that her pain is relieved with analgesics. She states that she has intermittent blurred vision in her left eye that she notices occurs when she has waves of pain and resolves when her pain is controlled. She is able to read the text on her tv screen and the clock. She feels that her left eye is swollen and this may be causing some of her symptoms as well. She denies any drainage from the left eye. She does have significant left ear pain and complains of swelling of her left earlobe. States that the ear is extremely tender to palpation. She denies any ear drainage. 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 Her left arm pain has resolved. She had some numbness and tingling ?as if it had fallen asleep? 2 days ago but this has resolved. She endorses fever and sweats on arrival but now denies fever, chills, nausea, or vomiting. She does endorse unsteady gait and needs assistance with ambulation. Review of Systems Review of Systems: All systems reviewed & are unremarkable excep
--- NOTE | 2022-05-07 11:49 | PC.NURSE ---
Second call made to pharmacy requesting the acyclovir infusion. Awaiting call back.
[2022-05-07 14:00] VITALS: BP 155/81; PULSE 72; RESP 18; TEMP 36.6; O2SAT 98
[2022-05-07] MEDS: CIPROFLOXACIN 400 MG/D5W 200ML 200 ML 200 MG IVPB ×2 (14:12→21:56)
[2022-05-07 20:00] VITALS: PULSE 77; RESP 18; O2SAT 97
[2022-05-07] MEDS: CIPROFLOXACIN HC OTIC 10 ML 3 DROP LEFT EAR (20:12)
[2022-05-07 20:16] VITALS: BP 145/70; PULSE 77; RESP 18; TEMP 36.3; O2SAT 97
[2022-05-08] MEDS: ACYCLOVIR SODIUM IVPB 800 MG in DEXTROSE 5% IN WATER 250 ML 266 MG IVPB ×3 (01:57→17:14)
[2022-05-08] MEDS: HYDROcodone/acetaminophen (*CRX) 5-325 MG TABLET 1 TAB PO ×5 (02:00→21:38)
[2022-05-08 04:58] VITALS: BP 163/76; PULSE 69; RESP 18; TEMP 36.3; O2SAT 96
[2022-05-08 06:19] LABS: Hemoglobin 11.8 g/dL (12.0-15.0); Mean Corpuscular HGB Conc 33.7 g/dl (32-36); Mean Corpuscular Hemoglobin 30.5 pg (26-34); Mean Corpuscular Volume 90.4 fl (80-100); Mean Platelet Volume 10.8 fl (7.4-10.4); Platelet Count Result 276 k/mm3 (150-375); Red Blood Count 3.87 M/mm3 (4.2-5.4); Red Cell Distribution Width 11.9 % (11.5-14.5)
[2022-05-08] MEDS: LEVOTHYROXINE SODIUM 75 MCG TABLET PO (06:20)
[2022-05-08] MEDS: LEVOTHYROXINE SODIUM 100 MCG TABLET PO (06:20)
[2022-05-08] MEDS: cloNIDine HCL 0.2 MG TABLET PO ×3 (06:20→21:39)
[2022-05-08] MEDS: CIPROFLOXACIN 400 MG/D5W 200ML 200 ML 200 MG IVPB ×3 (06:21→21:39)
[2022-05-08] MEDS: methylPREDNISolone SOD SUCC 40 MG VIAL IV PUSH ×3 (06:21→21:38)
[2022-05-08 06:28] LABS: Anion Gap 6 mmol/L (8-16); Blood Urea Nitrogen 16 mg/dL (7-17); Calcium 8.4 mg/dL (8.4-10.2); Carbon Dioxide 31 mmol/L (22-30); Chloride 97 mmol/L (98-107); Estimated CRCL calculation 129 ml/min; Estimated Glomerular Filt Rate > 60; Glucose 154 mg/dL (65-110); Potassium 4.1 mmol/L (3.4-5.0); Sodium 134 mmol/L (137-145)
[2022-05-08] MEDS: FUROSEMIDE 20 MG TABLET PO (09:23)
[2022-05-08] MEDS: lisinopriL 10 MG TABLET PO (09:23)
[2022-05-08] MEDS: CIPROFLOXACIN HC OTIC 10 ML 3 DROP LEFT EAR ×2 (09:24→21:39)
--- NOTE | 2022-05-08 11:45 | PM.IMPN ---
Progress Note: A&P Assessment and Plan (1) Left facial pain: Code(s): R51.9 - Headache, unspecified Status: Acute Assessment and Plan: Patient presents with significant left facial pain and swelling. Head CT unremarkable with no acute intracranial process and no osseous abnormality with clear aerated spaces Cervical spine CT with no acute fracture, traumatic malalignment, or other abnormal findings CTA of the head and neck does not show any acue findings MRI of the brain with and without contrast does not show any acute findings Differential per ENT includes chondritis of external ear Continue with supportive care Pain medications ordered (2) Malignant otitis externa of left ear: Code(s): H60.22 - Malignant otitis externa, left ear Status: Acute Assessment and Plan: Patient with significant left ear swelling of the auricle and canal Patient febrile on presentation up to 103.0. Fever resolved. No leukocytosis. Continue IV cipro q8h Continue IV solu medrol 40 mg q8h, decrease to BID Appreciate ENT recommendations CT/MRI no acute findings (3) HZV (herpes zoster virus) post herpetic neuralgia: Code(s): B02.29 - Other postherpetic nervous system involvement Status: Suspected Assessment and Plan: Seems less likely given no vesicular rash or other cutaneous findings and not in typical dermatomal distribution Patient has been started on acyclovir which will continue at this time pending further workup Herpes zoster IgM and IgG pending Supportive care (4) Hypertension: Code(s): I10 - Essential (primary) hypertension Status: Acute Assessment and Plan: Blood pressures are stable. Last BP 163/76 Continue home clonidine, lisinopril, and furosemide Monitor BP trends (5) Hypothyroidism (acquired): Code(s): E03.9 - Hypothyroidism, unspecified Status: Acute Assessment and Plan: TSH is low at 0.14and T4 is elevated at 2.2 Levothyroxine has been titrated down by primary Continue levothyroxine 175mcg Daily Recheck in 6 weeks Plan Left calf pain, venous doppler ordered Visual changes noted will have neuro come to see the patient Time Spent With Patient Time: 48 minutes Time with patient: Greater than 35 minutes Subjective Date/time seen: 05/08/22 11:45 Interval history: 05/08/22 1145 Patient is Lying in bed. Patient stated that she feels a whole lot better today. daughters also present the room. She currently denies any chest pain, shortness a breath, nausea, vomiting, diarrhea constipation. She is still having some pain in her left face. She also stated that Her vision is a lot better with the light off. She also is complaining of some right-sided calf pain which she stated they saw bruise yesterday. Will have Neurology come see the patient did consult Neurology over the ordered never made it in. CT and MRIs both are negative for any kind of new findings. 05/07/2022 0937 Parveena Mckenzie is a 52-year-old female with a history of hypertension, SLE, and hypothyroidism who is seen in follow-up for left facial pain and swelling. The patient states that she hit her head on a car door 6 days ago. She later developed a knot on her head and then left-sided head and facial pain. She then noticed difficulty with movement on her left side and pain that went down to left arm. She states that she had a bad night last night due to frequent episodes of pain. She does note that her pain is relieved with analgesics. She states that she has intermittent blurred vision in her left eye that she notices occurs when she has waves of pain and resolves when her pain is controlled. She is able to read the text on her tv screen and the clock. She feels that her left eye is swollen and this may be causing some of her symptoms as well. She denies any drainage from the left eye. She does have
--- NOTE | 2022-05-08 12:39 | WPDNEURCNPN ---
Assessment and Plan Assessment and plan (1) Hyperalgesia: Code(s): R20.8 - Other disturbances of skin sensation Status: Acute (2) Left facial pain: Code(s): R51.9 - Headache, unspecified Status: Acute (3) Blurry vision, left eye: Code(s): H53.8 - Other visual disturbances Status: Acute (4) Chondritis of external ear: Code(s): H61.039 - Chondritis of external ear, unspecified ear Status: Acute (5) Malignant otitis externa of left ear: Code(s): H60.22 - Malignant otitis externa, left ear Status: Acute (6) Lupus (systemic lupus erythematosus): Code(s): M32.9 - Systemic lupus erythematosus, unspecified Status: Acute Plan Praveena Mckenzie is a 52 year old female with a history of obesity, hypertension, hypothyroidism, and documented history of lupus who presented on 05/04 due to left side facial pain, blurry vision of the left eye, and left sided weakness. MRI brain was unrevealing. CTA brain/carotid was normal as well. Facial pain and photophobia may be due to swelling on the left side of the face, but etiology of that is not clear either. Could be related to lupus? I don't have a good reason for why she is having weakness in the left arm and leg given normal imaging. May be worth adding MRV given facial pain and vision changes to rule out cortical venous thrombosis. Can also get MRI orbit w/wo contrast to get a closer look at the optic nerve. - MRV brain and MRI orbit with and without contrast Consult date: 05/09/22 Reason for consult: left facial swelling/pain, left sided blurry vision HPI: Praveena Mckenzie is a 52 year old female with a history of obesity, hypertension, hypothyroidism, and documented history of lupus who presented on 05/04 due to left side facial pain. Patient presented after developing pain on the left side of her face that extended to her ear lobe as well as redness and tenderness. She also endorsed fever. Her labs were unrevealing on admission and normal WBC. CT head was normal. Patient was started on acyclovir for possible herpetic/varicella related symptoms. She was also started on ciprofloxacin for otitis externa. ENT was consulted and thought maybe symptoms could be due to chondritis so she was started on steroids. MRI brain and CTA brain/carotid have been done and are normal as well. Patient has also had intermittent blurring of her vision of her left eye that seems to fluctuate with intensity of left facial pain. She also feels that her left eye is swollen. Patient reports that her pain is better controlled on the medications she has been receiving. The swelling has gotten better too. She continues to have blurriness of vision in the left eye with associated photophobia. Patient also feels that her entire left side is weak. As for her lupus, she has not seen a Lavatory Attendant recently as she was having difficulty with insurance coverage. Review of Systems Constitutional: Constitutional: Reports no additional constitutional complaints Eyes: Eyes: Reports blurry vision and Reports photophobia ENT: Comments: swelling of left ear Cardiovascular: Cardiovascular: Reports no additional cardiovascular complaints Respiratory: Respiratory: Reports no additional respiratory complaints Gastrointestinal: Gastrointestinal: Reports no additional gastrointestinal complaints Genitourinary: Genitourinary: Reports no additional female genitourinary complaints Musculoskeletal: Musculoskeletal: Reports no additional musculoskeletal complaints Integumentary/Breasts: Comments: redness of left ear Neurologic: Reports as per HPI Psychiatric: Psychiatric: Reports no additional psychiatric complaints PMFSH Past Medical History Medical History Goiter Hypertension Lupus (systemic lupus erythematosus) Lymphedema Postcholecystectomy diarrhea Surgical History Surgical History
[2022-05-08 13:04] LABS: Varicella IgM Antibody <=0.90 (<=0.90)
[2022-05-08 14:00] VITALS: BP 138/72; PULSE 62; RESP 16; TEMP 37; O2SAT 98
[2022-05-08 19:56] VITALS: BP 131/82; PULSE 63; RESP 16; TEMP 36.6; O2SAT 97
[2022-05-08 20:00] VITALS: PULSE 63; RESP 16; O2SAT 97
[2022-05-09] MEDS: ACYCLOVIR SODIUM IVPB 800 MG in DEXTROSE 5% IN WATER 250 ML 266 MG IVPB ×3 (01:40→17:04)
[2022-05-09] MEDS: HYDROcodone/acetaminophen (*CRX) 5-325 MG TABLET 1 TAB PO ×5 (01:41→21:26)
[2022-05-09 05:19] VITALS: BP 142/84; PULSE 58; RESP 18; TEMP 36.6; O2SAT 97
[2022-05-09 05:27] LABS: Basophils Percent Auto 0.1 % (0.2-1.2); Hematocrit 37.2 % (37.0-47.0); Hemoglobin 12.3 g/dL (12.0-15.0); Immature Granulocyte Percent A 1.3 % (0-0.5); Lymphocytes Absolute Auto 0.81 K/mm3 (0.9-3.2); Lymphocytes Percent Auto 10.7 % (18.3-44.2); Mean Corpuscular HGB Conc 33.1 g/dl (32-36); Mean Corpuscular Hemoglobin 30.7 pg (26-34); Mean Corpuscular Volume 92.8 fl (80-100); Mean Platelet Volume 10.6 fl (7.4-10.4); Monocytes Absolute Auto 0.3 K/mm3 (0.1-0.6); Monocytes Percent Auto 3.4 % (2.6-8.5); Neutrophils Absolute Auto 6.4 K/mm3 (1.3-6.7); Neutrophils Percent Auto 84.5 % (45.5-73.1); Platelet Count Result 260 k/mm3 (150-375); Red Blood Count 4.01 M/mm3 (4.2-5.4); Red Cell Distribution Width 11.8 % (11.5-14.5); White Blood Count 7.6 K/mm3 (4.5-10.0)
[2022-05-09] MEDS: cloNIDine HCL 0.2 MG TABLET PO ×3 (05:35→21:28)
[2022-05-09] MEDS: CIPROFLOXACIN 400 MG/D5W 200ML 200 ML 200 MG IVPB ×3 (05:35→21:28)
[2022-05-09] MEDS: LEVOTHYROXINE SODIUM 75 MCG TABLET PO (05:35)
[2022-05-09] MEDS: LEVOTHYROXINE SODIUM 100 MCG TABLET PO (05:35)
[2022-05-09 05:39] LABS: Alanine Aminotransferase 34 U/L (6-35); Albumin Level 3.8 g/dL (3.5-5.1); Alkaline Phosphatase 99 U/L (38-126); Anion Gap 5 mmol/L (8-16); Aspartate Amino Transferase 23 U/L (14-36); Bilirubin,Total 0.5 mg/dL (0.2-1.3); Blood Urea Nitrogen 17 mg/dL (7-17); Calcium 8.3 mg/dL (8.4-10.2); Carbon Dioxide 31 mmol/L (22-30); Chloride 98 mmol/L (98-107); Estimated CRCL calculation 129 ml/min; Estimated Glomerular Filt Rate > 60; Glucose 171 mg/dL (65-110); Magnesium 2.5 mg/dL (1.6-2.3); Potassium 4.7 mmol/L (3.4-5.0); Sodium 134 mmol/L (137-145)
[2022-05-09] MEDS: methylPREDNISolone SOD SUCC 40 MG VIAL IV PUSH ×2 (09:31→21:28)
[2022-05-09] MEDS: lisinopriL 10 MG TABLET PO (09:32)
[2022-05-09] MEDS: CIPROFLOXACIN HC OTIC 10 ML 3 DROP LEFT EAR ×2 (09:32→21:28)
[2022-05-09] MEDS: ENOXAPARIN 40 MG/0.4 ML SYRINGE SUB-Q (09:32)
[2022-05-09] MEDS: FUROSEMIDE 20 MG TABLET PO (09:32)
--- NOTE | 2022-05-09 12:00 | P.PNIM_ITS ---
Progress Note: A&P Assessment and Plan (1) Left facial pain: Code(s): R51.9 - Headache, unspecified Status: Acute Assessment and Plan: Patient presents with significant left facial pain and swelling. * Head CT unremarkable with no acute intracranial process and no osseous abnormality with clear aerated spaces * Cervical spine CT with no acute fracture, traumatic malalignment, or other abnormal findings * CTA of the head and neck does not show any acue findings * MRI of the brain with and without contrast does not show any acute findings * Differential per ENT includes chondritis of external ear * Continue with supportive care * Pain medications ordered * Orbits of the face/neck MRI- Normal orbits * Head and brain venography normal head MRV (2) Malignant otitis externa of left ear: Code(s): H60.22 - Malignant otitis externa, left ear Status: Acute Assessment and Plan: Patient with significant left ear swelling of the auricle and canal * Patient febrile on presentation up to 103.0. Fever resolved. No leukocytosis. * Continue IV cipro q8h * Continue IV solu medrol 40 mg q8h, decrease to BID * Appreciate ENT recommendations * CT/MRI no acute findings (3) HZV (herpes zoster virus) post herpetic neuralgia: Code(s): B02.29 - Other postherpetic nervous system involvement Status: Suspected Assessment and Plan: Seems less likely given no vesicular rash or other cutaneous findings and not in typical dermatomal distribution * Patient has been started on acyclovir which will continue at this time pending further workup * Herpes zoster IgM and IgG pending * Supportive care (4) Hypertension: Code(s): I10 - Essential (primary) hypertension Status: Acute Assessment and Plan: Blood pressures are stable. Last BP 163/76 * Continue home clonidine, lisinopril, and furosemide * Monitor BP trends (5) Hypothyroidism (acquired): Code(s): E03.9 - Hypothyroidism, unspecified Status: Acute Assessment and Plan: TSH is low at 0.14and T4 is elevated at 2.2 * Levothyroxine has been titrated down by primary * Continue levothyroxine 175mcg Daily * Recheck in 6 weeks Plan Left calf pain, venous doppler ordered Visual changes noted will have neuro come to see the patient Subjective Date/time seen: 05/09/22 1200 Interval history: 05/09/22 1200 Patient is lying in bed. Patient stated that she is feeling a lot better as well. She did state that when she chews she can not really feel in the top of her head. Swelling is much better. She denies any visual changes. She is still having pain with palpation on the right calf area. She denies any chest pain, shortness a breath, nausea, vomiting, diarrhea or constipation. 05/08/22 1145 Patient is Lying in bed. Patient stated that she feels a whole lot better today. daughters also present the room. She currently denies any chest pain, shortness a breath, nausea, vomiting, diarrhea constipation. She is still having some pain in her left face. She also stated that Her vision is a lot better with the light off. She also is complaining of some right-sided calf pain which she stated they saw bruise yesterday. Will have Neurology come see the patient did consult Neurology over the ordered never made it in. CT and MRIs both are negative for any kind of new findings. 05/07/2022 0937 Praveena Mckenzie is a 52-year-old female with a history
--- NOTE | 2022-05-09 12:00 | PM.IMPN ---
Progress Note: A&P Assessment and Plan (1) Left facial pain: Code(s): R51.9 - Headache, unspecified Status: Acute Assessment and Plan: Patient presents with significant left facial pain and swelling. Head CT unremarkable with no acute intracranial process and no osseous abnormality with clear aerated spaces Cervical spine CT with no acute fracture, traumatic malalignment, or other abnormal findings CTA of the head and neck does not show any acue findings MRI of the brain with and without contrast does not show any acute findings Differential per ENT includes chondritis of external ear Continue with supportive care Pain medications ordered Orbits of the face/neck MRI- Normal orbits Head and brain venography normal head MRV (2) Malignant otitis externa of left ear: Code(s): H60.22 - Malignant otitis externa, left ear Status: Acute Assessment and Plan: Patient with significant left ear swelling of the auricle and canal Patient febrile on presentation up to 103.0. Fever resolved. No leukocytosis. Continue IV cipro q8h Continue IV solu medrol 40 mg q8h, decrease to BID Appreciate ENT recommendations CT/MRI no acute findings (3) HZV (herpes zoster virus) post herpetic neuralgia: Code(s): B02.29 - Other postherpetic nervous system involvement Status: Suspected Assessment and Plan: Seems less likely given no vesicular rash or other cutaneous findings and not in typical dermatomal distribution Patient has been started on acyclovir which will continue at this time pending further workup Herpes zoster IgM and IgG pending Supportive care (4) Hypertension: Code(s): I10 - Essential (primary) hypertension Status: Acute Assessment and Plan: Blood pressures are stable. Last BP 163/76 Continue home clonidine, lisinopril, and furosemide Monitor BP trends (5) Hypothyroidism (acquired): Code(s): E03.9 - Hypothyroidism, unspecified Status: Acute Assessment and Plan: TSH is low at 0.14and T4 is elevated at 2.2 Levothyroxine has been titrated down by primary Continue levothyroxine 175mcg Daily Recheck in 6 weeks Plan Left calf pain, venous doppler ordered Visual changes noted will have neuro come to see the patient Subjective Date/time seen: 05/09/22 1200 Interval history: 05/09/221199 Patient is lying in bed. Patient stated that she is feeling a lot better as well. She did state that when she chews she can not really feel in the top of her head. Swelling is much better. She denies any visual changes. She is still having pain with palpation on the right calf area. She denies any chest pain, shortness a breath, nausea, vomiting, diarrhea or constipation. 05/08/22 1145 Patient is Lying in bed. Patient stated that she feels a whole lot better today. daughters also present the room. She currently denies any chest pain, shortness a breath, nausea, vomiting, diarrhea constipation. She is still having some pain in her left face. She also stated that Her vision is a lot better with the light off. She also is complaining of some right-sided calf pain which she stated they saw bruise yesterday. Will have Neurology come see the patient did consult Neurology over the ordered never made it in. CT and MRIs both are negative for any kind of new findings. 05/07/2022 0937 Praveena Mckenzie is a 52-year-old female with a history of hypertension, SLE, and hypothyroidism who is seen in follow-up for left facial pain and swelling. The patient states that she hit her head on a car door 6 days ago. She later developed a knot on her head and then left-sided head and facial pain. She then noticed difficulty with movement on her left side and pain that went down to left arm. She states that she had a bad night last night due to frequent episodes of pain. She does note that her pain is r
[2022-05-09 14:00] VITALS: BP 155/78; PULSE 67; RESP 14; TEMP 36.6; O2SAT 98
[2022-05-09 20:00] VITALS: PULSE 63; RESP 16; O2SAT 97
[2022-05-09 20:54] VITALS: BP 132/74; PULSE 63; RESP 16; TEMP 36.6; O2SAT 97
[2022-05-10] MEDS: HYDROcodone/acetaminophen (*CRX) 5-325 MG TABLET 1 TAB PO ×3 (03:13→21:04)
[2022-05-10] MEDS: ACYCLOVIR SODIUM IVPB 800 MG in DEXTROSE 5% IN WATER 250 ML 266 MG IVPB ×3 (03:14→18:32)
[2022-05-10 05:07] VITALS: BP 148/82; PULSE 63; RESP 18; TEMP 36.2; O2SAT 100
[2022-05-10 05:15] VITALS: TEMP 36.2
[2022-05-10] MEDS: cloNIDine HCL 0.2 MG TABLET PO ×3 (05:23→21:08)
[2022-05-10] MEDS: LEVOTHYROXINE SODIUM 100 MCG TABLET PO (05:23)
[2022-05-10] MEDS: LEVOTHYROXINE SODIUM 75 MCG TABLET PO (05:23)
[2022-05-10] MEDS: CIPROFLOXACIN 400 MG/D5W 200ML 200 ML 200 MG IVPB ×3 (05:23→21:12)
[2022-05-10 06:17] LABS: Basophils Percent Auto 0.1 % (0.2-1.2); Hematocrit 37.7 % (37.0-47.0); Immature Granulocyte Absolute 0.29 K/mm3 (0.00-0.031); Immature Granulocyte Percent A 3.9 % (0-0.5); Lymphocytes Absolute Auto 0.84 K/mm3 (0.9-3.2); Lymphocytes Percent Auto 11.3 % (18.3-44.2); Mean Corpuscular HGB Conc 34.5 g/dl (32-36); Mean Corpuscular Volume 89.8 fl (80-100); Mean Platelet Volume 10.5 fl (7.4-10.4); Monocytes Absolute Auto 0.4 K/mm3 (0.1-0.6); Monocytes Percent Auto 5.4 % (2.6-8.5); Neutrophils Absolute Auto 5.9 K/mm3 (1.3-6.7); Neutrophils Percent Auto 79.3 % (45.5-73.1); Platelet Count Result 284 k/mm3 (150-375); Red Cell Distribution Width 11.7 % (11.5-14.5); White Blood Count 7.4 K/mm3 (4.5-10.0)
[2022-05-10 06:26] LABS: Alanine Aminotransferase 43 U/L (6-35); Albumin Level 3.7 g/dL (3.5-5.1); Alkaline Phosphatase 115 U/L (38-126); Anion Gap 5 mmol/L (8-16); Aspartate Amino Transferase 22 U/L (14-36); Bilirubin,Total 0.5 mg/dL (0.2-1.3); Blood Urea Nitrogen 16 mg/dL (7-17); Calcium 7.9 mg/dL (8.4-10.2); Carbon Dioxide 32 mmol/L (22-30); Chloride 98 mmol/L (98-107); Estimated CRCL calculation 129 ml/min; Estimated Glomerular Filt Rate > 60; Glucose 186 mg/dL (65-110); Magnesium 2.6 mg/dL (1.6-2.3); Potassium 4.3 mmol/L (3.4-5.0); Sodium 135 mmol/L (137-145)
[2022-05-10 10:00] VITALS: PULSE 72; RESP 20; O2SAT 98
[2022-05-10] MEDS: methylPREDNISolone SOD SUCC 40 MG VIAL IV PUSH ×2 (10:01→21:08)
[2022-05-10] MEDS: ENOXAPARIN 40 MG/0.4 ML SYRINGE SUB-Q (10:01)
[2022-05-10] MEDS: lisinopriL 10 MG TABLET PO (10:01)
[2022-05-10] MEDS: FUROSEMIDE 20 MG TABLET PO (10:02)
[2022-05-10] MEDS: CIPROFLOXACIN HC OTIC 10 ML 3 DROP LEFT EAR ×2 (10:03→21:07)
--- NOTE | 2022-05-10 10:50 | PM.IMPN ---
Progress Note: A&P Assessment and Plan (1) Left facial pain: Code(s): R51.9 - Headache, unspecified Status: Acute Assessment and Plan: Patient presents with significant left facial pain and swelling. Head CT unremarkable with no acute intracranial process and no osseous abnormality with clear aerated spaces Cervical spine CT with no acute fracture, traumatic malalignment, or other abnormal findings CTA of the head and neck does not show any acue findings MRI of the brain with and without contrast does not show any acute findings Differential per ENT includes chondritis of external ear Continue with supportive care Pain medications ordered Orbits of the face/neck MRI- Normal orbits Head and brain venography normal head MRV (2) Malignant otitis externa of left ear: Code(s): H60.22 - Malignant otitis externa, left ear Status: Acute Assessment and Plan: Patient with significant left ear swelling of the auricle and canal Patient febrile on presentation up to 103.0. Fever resolved. No leukocytosis. Continue IV cipro q8h Continue IV solu medrol 40 mg q8h, decrease to BID Appreciate ENT recommendations CT/MRI no acute findings (3) HZV (herpes zoster virus) post herpetic neuralgia: Code(s): B02.29 - Other postherpetic nervous system involvement Status: Suspected Assessment and Plan: Seems less likely given no vesicular rash or other cutaneous findings and not in typical dermatomal distribution Patient has been started on acyclovir which will continue at this time pending further workup Herpes zoster IgM and IgG pending Supportive care (4) Hypertension: Code(s): I10 - Essential (primary) hypertension Status: Acute Assessment and Plan: Blood pressures are stable. Last BP 163/76 Continue home clonidine, lisinopril, and furosemide Monitor BP trends (5) Hypothyroidism (acquired): Code(s): E03.9 - Hypothyroidism, unspecified Status: Acute Assessment and Plan: TSH is low at 0.14and T4 is elevated at 2.2 Levothyroxine has been titrated down by primary Continue levothyroxine 175mcg Daily Recheck in 6 weeks (6) Lupus (systemic lupus erythematosus): Code(s): M32.9 - Systemic lupus erythematosus, unspecified Status: Acute Assessment and Plan: Seems to be also playing a part with the pain Seems to be stable at this point. Continue current plan Will need to see a outcome analyst outpatient Time Spent With Patient Time: 48 minutes Time with patient: Greater than 35 minutes Subjective Date/time seen: 05/10/22 1050 Interval history: 05/10/22 105 Patient is doing ok. She is still have some pain, however, it has been controlled since she has been getting scheduled pain medications. Currently she denies any chest pain, shortness of breath, nausea, vomiting, diarrhea, or constipation. The swelling appears to be better. 05/09/22 1200 Patient is lying in bed. Patient stated that she is feeling a lot better as well. She did state that when she chews she can not really feel in the top of her head. Swelling is much better. She denies any visual changes. She is still having pain with palpation on the right calf area. She denies any chest pain, shortness a breath, nausea, vomiting, diarrhea or constipation. 05/08/22 1145 Patient is Lying in bed. Patient stated that she feels a whole lot better today. daughters also present the room. She currently denies any chest pain, shortness a breath, nausea, vomiting, diarrhea constipation. She is still having some pain in her left face. She also stated that Her vision is a lot better with the light off. She also is complaining of some right-sided calf pain which she stated they saw bruise yesterday. Will have Neurology come see the patient did consult Neurology over the ordered never made it in.
--- NOTE | 2022-05-10 10:50 | P.PNIM_ITS ---
Progress Note: A&P Assessment and Plan (1) Left facial pain: Code(s): R51.9 - Headache, unspecified Status: Acute Assessment and Plan: Patient presents with significant left facial pain and swelling. * Head CT unremarkable with no acute intracranial process and no osseous abnormality with clear aerated spaces * Cervical spine CT with no acute fracture, traumatic malalignment, or other abnormal findings * CTA of the head and neck does not show any acue findings * MRI of the brain with and without contrast does not show any acute findings * Differential per ENT includes chondritis of external ear * Continue with supportive care * Pain medications ordered * Orbits of the face/neck MRI- Normal orbits * Head and brain venography normal head MRV (2) Malignant otitis externa of left ear: Code(s): H60.22 - Malignant otitis externa, left ear Status: Acute Assessment and Plan: Patient with significant left ear swelling of the auricle and canal * Patient febrile on presentation up to 103.0. Fever resolved. No leukocytosis. * Continue IV cipro q8h * Continue IV solu medrol 40 mg q8h, decrease to BID * Appreciate ENT recommendations * CT/MRI no acute findings (3) HZV (herpes zoster virus) post herpetic neuralgia: Code(s): B02.29 - Other postherpetic nervous system involvement Status: Suspected Assessment and Plan: Seems less likely given no vesicular rash or other cutaneous findings and not in typical dermatomal distribution * Patient has been started on acyclovir which will continue at this time pending further workup * Herpes zoster IgM and IgG pending * Supportive care (4) Hypertension: Code(s): I10 - Essential (primary) hypertension Status: Acute Assessment and Plan: Blood pressures are stable. Last BP 163/76 * Continue home clonidine, lisinopril, and furosemide * Monitor BP trends (5) Hypothyroidism (acquired): Code(s): E03.9 - Hypothyroidism, unspecified Status: Acute Assessment and Plan: TSH is low at 0.14and T4 is elevated at 2.2 * Levothyroxine has been titrated down by primary * Continue levothyroxine 175mcg Daily * Recheck in 6 weeks (6) Lupus (systemic lupus erythematosus): Code(s): M32.9 - Systemic lupus erythematosus, unspecified Status: Acute Assessment and Plan: * Seems to be also playing a part with the pain * Seems to be stable at this point. * Continue current plan * Will need to see a whipper outpatient Time Spent With Patient Time: 48 minutes Time with patient: Greater than 35 minutes Subjective Date/time seen: 05/10/22 1050 Interval history: 05/10/22 105 Patient is doing ok. She is still have some pain, however, it has been controlled since she has been getting scheduled pain medications. Currently she denies any chest pain, shortness of breath, nausea, vomiting, diarrhea, or constipation. The swelling appears to be better. 05/09/22 1200 Patient is lying in bed. Patient stated that she is feeling a lot better as well. She did state that when she chews she can not really feel in the top of her head. Swelling is much better. She denies any visual changes. She is still having pain with palpation on the right calf area. She denies any chest pain, shortness a breath, nausea, vomiting, diarrhea or constipation. 05/08/22 1145 Betito
[2022-05-10 14:00] VITALS: BP 147/78; PULSE 72; RESP 20; TEMP 36.2; O2SAT 98
[2022-05-10 20:00] VITALS: PULSE 67; RESP 18; O2SAT 96
[2022-05-10 21:55] VITALS: BP 167/84; PULSE 67; RESP 18; TEMP 35.6; O2SAT 96
[2022-05-11] MEDS: HYDROcodone/acetaminophen (*CRX) 5-325 MG TABLET 1 TAB PO ×4 (03:31→21:24)
[2022-05-11] MEDS: ACYCLOVIR SODIUM IVPB 800 MG in DEXTROSE 5% IN WATER 250 ML 266 MG IVPB ×3 (03:33→18:43)
[2022-05-11] MEDS: MORPHINE SULFATE (*CRX) 2 MG/ML INJ IV PUSH (05:12)
[2022-05-11 05:20] LABS: Basophils Percent Auto 0.4 % (0.2-1.2); Hemoglobin 13.2 g/dL (12.0-15.0); Immature Granulocyte Absolute 0.56 K/mm3 (0.00-0.031); Immature Granulocyte Percent A 6.5 % (0-0.5); Lymphocytes Absolute Auto 0.92 K/mm3 (0.9-3.2); Lymphocytes Percent Auto 10.7 % (18.3-44.2); Mean Corpuscular HGB Conc 33.8 g/dl (32-36); Mean Corpuscular Hemoglobin 30.4 pg (26-34); Mean Corpuscular Volume 89.9 fl (80-100); Mean Platelet Volume 10.2 fl (7.4-10.4); Monocytes Absolute Auto 0.4 K/mm3 (0.1-0.6); Monocytes Percent Auto 4.7 % (2.6-8.5); Neutrophils Absolute Auto 6.7 K/mm3 (1.3-6.7); Neutrophils Percent Auto 77.7 % (45.5-73.1); Platelet Count Result 300 k/mm3 (150-375); Red Blood Count 4.34 M/mm3 (4.2-5.4); Red Cell Distribution Width 11.8 % (11.5-14.5); White Blood Count 8.6 K/mm3 (4.5-10.0)
[2022-05-11 05:38] LABS: Alanine Aminotransferase 47 U/L (6-35); Albumin Level 3.7 g/dL (3.5-5.1); Alkaline Phosphatase 106 U/L (38-126); Anion Gap 2 mmol/L (8-16); Aspartate Amino Transferase 25 U/L (14-36); Bilirubin,Total 0.5 mg/dL (0.2-1.3); Blood Urea Nitrogen 18 mg/dL (7-17); Calcium 8.1 mg/dL (8.4-10.2); Carbon Dioxide 33 mmol/L (22-30); Chloride 96 mmol/L (98-107); Estimated CRCL calculation 129 ml/min; Estimated Glomerular Filt Rate > 60; Glucose 204 mg/dL (65-110); Magnesium 2.4 mg/dL (1.6-2.3); Potassium 4.3 mmol/L (3.4-5.0); Sodium 131 mmol/L (137-145)
[2022-05-11 06:00] VITALS: BP 151/96; PULSE 61; RESP 20; TEMP 35.9; O2SAT 99
[2022-05-11] MEDS: CIPROFLOXACIN 400 MG/D5W 200ML 200 ML 200 MG IVPB ×3 (06:47→21:24)
[2022-05-11] MEDS: LEVOTHYROXINE SODIUM 100 MCG TABLET PO (06:48)
[2022-05-11] MEDS: cloNIDine HCL 0.2 MG TABLET PO ×3 (06:48→21:25)
[2022-05-11] MEDS: LEVOTHYROXINE SODIUM 75 MCG TABLET PO (06:48)
[2022-05-11 08:30] VITALS: PULSE 61; RESP 20; O2SAT 99
[2022-05-11] MEDS: ENOXAPARIN 40 MG/0.4 ML SYRINGE SUB-Q (08:33)
[2022-05-11] MEDS: FUROSEMIDE 20 MG TABLET PO (08:33)
[2022-05-11] MEDS: lisinopriL 10 MG TABLET PO (08:33)
[2022-05-11] MEDS: methylPREDNISolone SOD SUCC 40 MG VIAL IV PUSH ×2 (08:34→21:25)
--- NOTE | 2022-05-11 09:30 | P.PNIM_ITS ---
Progress Note: A&P Assessment and Plan (1) Left facial pain: Code(s): R51.9 - Headache, unspecified Status: Acute Assessment and Plan: Patient presents with significant left facial pain and swelling. * Head CT unremarkable with no acute intracranial process and no osseous abnormality with clear aerated spaces * Cervical spine CT with no acute fracture, traumatic malalignment, or other abnormal findings * CTA of the head and neck does not show any acute findings * MRI of the brain with and without contrast does not show any acute findings * Differential per ENT includes chondritis of external ear * Continue with supportive care * Pain medications, morphine and norco available * Orbits of the face/neck MRI- Normal orbits * Head and brain venography normal head MRV (2) Malignant otitis externa of left ear: Code(s): H60.22 - Malignant otitis externa, left ear Status: Acute Assessment and Plan: Patient with significant left ear swelling of the auricle and canal * Patient febrile on presentation up to 103.0. Fever resolved. No leukocytosis. * Continue IV cipro q8h * Continue IV solu medrol 40 mg q8h, decrease to BID * Appreciate ENT recommendations * CT/MRI no acute findings (3) HZV (herpes zoster virus) post herpetic neuralgia: Code(s): B02.29 - Other postherpetic nervous system involvement Status: Suspected Assessment and Plan: Seems less likely given no vesicular rash or other cutaneous findings and not in typical dermatomal distribution * Patient has been started on acyclovir * Seems to be likely a shingles outbreak * Herpes zoster IgM <=0.90 and IgG 513.50 * Supportive care (4) Hypertension: Code(s): I10 - Essential (primary) hypertension Status: Acute Assessment and Plan: Blood pressures are stable. Last BP 151/96 * Continue home clonidine, lisinopril, and furosemide * Most likely high due to acute pain exacerbation * Monitor BP trends (5) Hypothyroidism (acquired): Code(s): E03.9 - Hypothyroidism, unspecified Status: Acute Assessment and Plan: TSH is low at 0.14and T4 is elevated at 2.2 * Levothyroxine has been titrated down by primary * Continue levothyroxine 175mcg Daily * Recheck in 6 weeks (6) Lupus (systemic lupus erythematosus): Code(s): M32.9 - Systemic lupus erythematosus, unspecified Status: Acute Assessment and Plan: * Seems to be also playing a part with the pain * Seems to be stable at this point. * Continue current plan * Will need to see a gastroenterologist outpatient Time Spent With Patient Time: 46 minutes Time with patient: Greater than 35 minutes Subjective Date/time seen: 05/11/22929 Interval history: 05/11/22929 Patient stated that she was doing well until she decided to brush her hair yesterday she said after she pressure hair the pain was fertile and she was unable to get any kind of relief. However she currently rates at a 7 or 8/10. She seems to be very sad and emotional. She did state that the swelling is better. She denies any chest pain or shortness of breath. She also stated that she has been having night sweats and has been soaking the bed. Labs and vital signs remained stable. 05/10/22 1050 Patient is doing ok. She is still have some pain, however, it has been controlled since she has been getting schedu
--- NOTE | 2022-05-11 09:30 | PM.IMPN ---
Progress Note: A&P Assessment and Plan (1) Left facial pain: Code(s): R51.9 - Headache, unspecified Status: Acute Assessment and Plan: Patient presents with significant left facial pain and swelling. Head CT unremarkable with no acute intracranial process and no osseous abnormality with clear aerated spaces Cervical spine CT with no acute fracture, traumatic malalignment, or other abnormal findings CTA of the head and neck does not show any acute findings MRI of the brain with and without contrast does not show any acute findings Differential per ENT includes chondritis of external ear Continue with supportive care Pain medications, morphine and norco available Orbits of the face/neck MRI- Normal orbits Head and brain venography normal head MRV (2) Malignant otitis externa of left ear: Code(s): H60.22 - Malignant otitis externa, left ear Status: Acute Assessment and Plan: Patient with significant left ear swelling of the auricle and canal Patient febrile on presentation up to 103.0. Fever resolved. No leukocytosis. Continue IV cipro q8h Continue IV solu medrol 40 mg q8h, decrease to BID Appreciate ENT recommendations CT/MRI no acute findings (3) HZV (herpes zoster virus) post herpetic neuralgia: Code(s): B02.29 - Other postherpetic nervous system involvement Status: Suspected Assessment and Plan: Seems less likely given no vesicular rash or other cutaneous findings and not in typical dermatomal distribution Patient has been started on acyclovir Seems to be likely a shingles outbreak Herpes zoster IgM <=0.90 and IgG 513.50 Supportive care (4) Hypertension: Code(s): I10 - Essential (primary) hypertension Status: Acute Assessment and Plan: Blood pressures are stable. Last BP 151/96 Continue home clonidine, lisinopril, and furosemide Most likely high due to acute pain exacerbation Monitor BP trends (5) Hypothyroidism (acquired): Code(s): E03.9 - Hypothyroidism, unspecified Status: Acute Assessment and Plan: TSH is low at 0.14and T4 is elevated at 2.2 Levothyroxine has been titrated down by primary Continue levothyroxine 175mcg Daily Recheck in 6 weeks (6) Lupus (systemic lupus erythematosus): Code(s): M32.9 - Systemic lupus erythematosus, unspecified Status: Acute Assessment and Plan: Seems to be also playing a part with the pain Seems to be stable at this point. Continue current plan Will need to see a trouble locater outpatient Time Spent With Patient Time: 46 minutes Time with patient: Greater than 35 minutes Subjective Date/time seen: 05/11/22929 Interval history: 05/11/22929 Patient stated that she was doing well until she decided to brush her hair yesterday she said after she pressure hair the pain was fertile and she was unable to get any kind of relief. However she currently rates at a 7 or 8/10. She seems to be very sad and emotional. She did state that the swelling is better. She denies any chest pain or shortness of breath. She also stated that she has been having night sweats and has been soaking the bed. Labs and vital signs remained stable. 05/10/22 1050 Patient is doing ok. She is still have some pain, however, it has been controlled since she has been getting scheduled pain medications. Currently she denies any chest pain, shortness of breath, nausea, vomiting, diarrhea, or constipation. The swelling appears to be better. 05/09/22 1200 Patient is lying in bed. Patient stated that she is feeling a lot better as well. She did state that when she chews she can not really feel in the top of her head. Swelling is much better. She denies any visual changes. She is still having pain with palpation on the right calf area. She denies any chest pain, shortness a breath, nausea, vomi
[2022-05-11 14:00] VITALS: BP 127/60; PULSE 64; RESP 20; TEMP 36.7; O2SAT 98
[2022-05-11 20:00] VITALS: PULSE 72; RESP 22; O2SAT 96
[2022-05-11 20:23] VITALS: O2SAT 96
[2022-05-11] MEDS: CIPROFLOXACIN HC OTIC 10 ML 3 DROP LEFT EAR (21:25)
[2022-05-11 22:00] VITALS: BP 135/59; PULSE 72; RESP 22; TEMP 36.8; O2SAT 96
[2022-05-12] MEDS: ACYCLOVIR SODIUM IVPB 800 MG in DEXTROSE 5% IN WATER 250 ML 266 MG IVPB ×3 (02:34→17:57)
[2022-05-12] MEDS: HYDROcodone/acetaminophen (*CRX) 5-325 MG TABLET 1 TAB PO ×3 (03:51→21:21)
[2022-05-12] MEDS: CIPROFLOXACIN 400 MG/D5W 200ML 200 ML 200 MG IVPB ×3 (05:32→21:22)
[2022-05-12] MEDS: cloNIDine HCL 0.2 MG TABLET PO ×3 (05:34→21:22)
[2022-05-12] MEDS: LEVOTHYROXINE SODIUM 75 MCG TABLET PO (05:35)
[2022-05-12] MEDS: LEVOTHYROXINE SODIUM 100 MCG TABLET PO (05:35)
[2022-05-12 05:48] LABS: Basophils Percent Auto 0.5 % (0.2-1.2); Hematocrit 40.8 % (37.0-47.0); Hemoglobin 13.7 g/dL (12.0-15.0); Immature Granulocyte Absolute 0.71 K/mm3 (0.00-0.031); Immature Granulocyte Percent A 7.4 % (0-0.5); Lymphocytes Absolute Auto 0.86 K/mm3 (0.9-3.2); Mean Corpuscular HGB Conc 33.6 g/dl (32-36); Mean Corpuscular Hemoglobin 30.5 pg (26-34); Mean Corpuscular Volume 90.9 fl (80-100); Mean Platelet Volume 10.6 fl (7.4-10.4); Monocytes Absolute Auto 0.5 K/mm3 (0.1-0.6); Monocytes Percent Auto 4.9 % (2.6-8.5); Neutrophils Absolute Auto 7.5 K/mm3 (1.3-6.7); Neutrophils Percent Auto 78.2 % (45.5-73.1); Nucleated Red Blood Cells Perc 0.2 % (0.0-0.2); Platelet Count Result 311 k/mm3 (150-375); Red Blood Count 4.49 M/mm3 (4.2-5.4); Red Cell Distribution Width 11.9 % (11.5-14.5); White Blood Count 9.5 K/mm3 (4.5-10.0)
[2022-05-12 05:49] LABS: Basophils Absolute Auto 0.1 K/mm3 (0.0-0.1)
[2022-05-12 06:00] VITALS: BP 130/68; PULSE 70; RESP 18; TEMP 36.9; O2SAT 97
[2022-05-12 06:00] LABS: Alanine Aminotransferase 45 U/L (6-35); Albumin Level 3.5 g/dL (3.5-5.1); Alkaline Phosphatase 112 U/L (38-126); Anion Gap 6 mmol/L (8-16); Aspartate Amino Transferase 24 U/L (14-36); Bilirubin,Total 0.6 mg/dL (0.2-1.3); Blood Urea Nitrogen 19 mg/dL (7-17); Calcium 7.8 mg/dL (8.4-10.2); Carbon Dioxide 31 mmol/L (22-30); Chloride 98 mmol/L (98-107); Estimated CRCL calculation 129 ml/min; Estimated Glomerular Filt Rate > 60; Glucose 216 mg/dL (65-110); Magnesium 2.3 mg/dL (1.6-2.3); Potassium 4.2 mmol/L (3.4-5.0); Sodium 135 mmol/L (137-145)
[2022-05-12] MEDS: ENOXAPARIN 40 MG/0.4 ML SYRINGE SUB-Q (09:58)
[2022-05-12] MEDS: lisinopriL 10 MG TABLET PO (09:59)
[2022-05-12] MEDS: FUROSEMIDE 20 MG TABLET PO (09:59)
[2022-05-12 10:00] VITALS: PULSE 74; RESP 20; O2SAT 95
[2022-05-12] MEDS: methylPREDNISolone SOD SUCC 40 MG VIAL IV PUSH ×2 (10:00→21:22)
[2022-05-12] MEDS: CIPROFLOXACIN HC OTIC 10 ML 3 DROP LEFT EAR ×2 (10:00→21:22)
[2022-05-12 12:29] LABS: Glucose Point of Care 264 mg/dl (65-105)
[2022-05-12] MEDS: INSULIN ASPART (*BKC) 100 UNITS/ML SUB-Q (12:54)
[2022-05-12 14:00] VITALS: BP 140/65; PULSE 74; RESP 20; TEMP 36.2; O2SAT 95
--- NOTE | 2022-05-12 14:17 | P.PNIM_ITS ---
Progress Note: A&P Assessment and Plan (1) Left facial pain: Code(s): R51.9 - Headache, unspecified Status: Acute (2) Chondritis of external ear: Code(s): H61.039 - Chondritis of external ear, unspecified ear Status: Acute (3) HZV (herpes zoster virus) post herpetic neuralgia: Code(s): B02.29 - Other postherpetic nervous system involvement Status: Suspected Plan 52-year-old female with past medical history significant for morbid obesity, hypertension, hypothyroidism.? Patient presented to the emergency room due to left hemicrania pain with extension into ear lobe and neck with redness, warmth, tenderness, upon touch in that area (1) Left facial pain: * Head CT unremarkable with no acute intracranial process and no osseous abnormality with clear aerated spaces * Cervical spine CT with no acute fracture, traumatic malalignment, or other abnormal findings * CTA of the head and neck does not show any acute findings * MRI of the brain with and without contrast does not show any acute findings * Differential per ENT includes chondritis of external ear * Continue with supportive care * Pain medications, morphine and norco available * Orbits of the face/neck MRI- Normal orbits * Head and brain venography normal head MRV (2) Malignant otitis externa of left ear: ?Patient with significant left ear swelling of the auricle and canal * Patient febrile on presentation up to 103.0. Fever resolved. No leukocytosis. * Continue IV cipro q8h * Continue IV solu medrol 40 mg BID * Appreciate ENT recommendations * CT/MRI no acute findings (3) HZV (herpes zoster virus) post herpetic neuralgia: Seems less likely given no vesicular rash or other cutaneous findings and not in typical dermatomal distribution * Patient has been started on acyclovir * Seems to be likely a shingles outbreak * Herpes zoster IgM <=0.90 and IgG 513.50 * Supportive care (4) Hypertension * Continue home clonidine, lisinopril, and furosemide * Monitor BP trends (5) Hypothyroidism (acquired): TSH is low at 0.14and T4 is elevated at 2.2 * Levothyroxine has been titrated down by primary * Continue levothyroxine 175mcg Daily * Recheck in 6 weeks (6) Lupus (systemic lupus erythematosus): * Seems to be also playing a part with the pain * Seems to be stable at this point. * Continue current plan * Will need to see a annealing operator outpatient 7)Elevated BG: No diagnosis of DM Likely 2/;2 steroids Add low dose SS Obtain HBA1C 8)DVT ppx:Lovenox 9)Code:Full 10)Dispo:pending improvement Time Spent With Patient Time with patient: 25 - 35 minutes Subjective Date/time seen: 05/12/22 14:17 Interval history: feeling better today Pain is better controlled today Review of Systems Review of Systems: All systems reviewed & are unremarkable except as noted in HPI and below Exam Narrative: General:? Obese, well-appearing 52-year-old female, sitting up in bed, comfortable, NARD Neuro: awake, alert and oriented x4, speech clear, CN II-XII intact. Sensation intact. No pronator drift, bilateral brick tosser strength equal. HEENMT: Left face is still slightly swollen, redness is better.? Under the jaw to the neck swelling is better.? PERRL observed Respiratory: clear to auscultation bilaterally, nonlabored breathing Cardio: regular rate, regular rhythm with S1-S2 Abdomen:? nondistended, normoactive bowel sounds, soft, nontender to palpation Extremities:2+ edema, no erythema, tenderness to palpation in th
--- NOTE | 2022-05-12 14:17 | PM.IMPN ---
Progress Note: A&P Assessment and Plan (1) Left facial pain: Code(s): R51.9 - Headache, unspecified Status: Acute (2) Chondritis of external ear: Code(s): H61.039 - Chondritis of external ear, unspecified ear Status: Acute (3) HZV (herpes zoster virus) post herpetic neuralgia: Code(s): B02.29 - Other postherpetic nervous system involvement Status: Suspected Plan 52-year-old female with past medical history significant for morbid obesity, hypertension, hypothyroidism.? Patient presented to the emergency room due to left hemicrania pain with extension into ear lobe and neck with redness, warmth, tenderness, upon touch in that area (1) Left facial pain: Head CT unremarkable with no acute intracranial process and no osseous abnormality with clear aerated spaces Cervical spine CT with no acute fracture, traumatic malalignment, or other abnormal findings CTA of the head and neck does not show any acute findings MRI of the brain with and without contrast does not show any acute findings Differential per ENT includes chondritis of external ear Continue with supportive care Pain medications, morphine and norco available Orbits of the face/neck MRI- Normal orbits Head and brain venography normal head MRV (2) Malignant otitis externa of left ear: ?Patient with significant left ear swelling of the auricle and canal Patient febrile on presentation up to 103.0. Fever resolved. No leukocytosis. Continue IV cipro q8h Continue IV solu medrol 40 mg BID Appreciate ENT recommendations CT/MRI no acute findings (3) HZV (herpes zoster virus) post herpetic neuralgia: Seems less likely given no vesicular rash or other cutaneous findings and not in typical dermatomal distribution Patient has been started on acyclovir Seems to be likely a shingles outbreak Herpes zoster IgM <=0.90 and IgG 513.50 Supportive care (4) Hypertension Continue home clonidine, lisinopril, and furosemide Monitor BP trends (5) Hypothyroidism (acquired): TSH is low at 0.14and T4 is elevated at 2.2 Levothyroxine has been titrated down by primary Continue levothyroxine 175mcg Daily Recheck in 6 weeks (6) Lupus (systemic lupus erythematosus): Seems to be also playing a part with the pain Seems to be stable at this point. Continue current plan Will need to see a manager float outpatient 7)Elevated BG: No diagnosis of DM Likely 2/;2 steroids Add low dose SS Obtain HBA1C 8)DVT ppx:Lovenox 9)Code:Full 10)Dispo:pending improvement Time Spent With Patient Time with patient: 25 - 35 minutes Subjective Date/time seen: 05/12/22 14:17 Interval history: feeling better today Pain is better controlled today Review of Systems Review of Systems: All systems reviewed & are unremarkable except as noted in HPI and below Exam Narrative: General:? Obese, well-appearing 52-year-old female, sitting up in bed, comfortable, NARD Neuro: awake, alert and oriented x4, speech clear, CN II-XII intact. Sensation intact. No pronator drift, bilateral fireproof door assembler strength equal. HEENMT: Left face is still slightly swollen, redness is better.? Under the jaw to the neck swelling is better.? PERRL observed Respiratory: clear to auscultation bilaterally, nonlabored breathing Cardio: regular rate, regular rhythm with S1-S2 Abdomen:? nondistended, normoactive bowel sounds, soft, nontender to palpation Extremities:2+ edema, no erythema, tenderness to palpation in the right calf, DP pulses 2+ bilaterally Skin: no rashes or lesions, warm and dry Psych: appropriate mood and affect, judgment and insight intact Objective Data Vital Signs Vital Signs: Vital Signs - 24 hr 05/11/22 22:00 05/11/22 20:00 05/11/22 20:23 Temperature 98.3 F Pulse Rate 72 72 Respiratory Rate 22 H 22 H Blood Pressure 135/59 L Pulse Oximetry 96 96 96 Oxygen Delivery Room Air Room Air 05/12/22 06:00 Temperature 98.4 F Pulse Rate 70 Resp
[2022-05-12 17:00] LABS: Glucose Point of Care 178 mg/dl (65-105)
[2022-05-12] MEDS: MORPHINE SULFATE (*CRX) 2 MG/ML INJ IV PUSH (18:01)
[2022-05-12 20:00] VITALS: PULSE 64; RESP 20; O2SAT 98
[2022-05-12 20:47] LABS: Glucose Point of Care 280 mg/dl (65-105)
[2022-05-12 21:20] VITALS: BP 134/63; PULSE 64; RESP 20; TEMP 36.8; O2SAT 98
[2022-05-12 23:16] VITALS: O2SAT 98
[2022-05-13] MEDS: HYDROcodone/acetaminophen (*CRX) 5-325 MG TABLET 1 TAB PO ×3 (01:07→09:43)
[2022-05-13] MEDS: ACYCLOVIR SODIUM IVPB 800 MG in DEXTROSE 5% IN WATER 250 ML 266 MG IVPB ×2 (01:07→09:06)
[2022-05-13 05:26] VITALS: BP 149/76; PULSE 63; RESP 20; TEMP 36.6; O2SAT 96
[2022-05-13] MEDS: LEVOTHYROXINE SODIUM 100 MCG TABLET PO (05:27)
[2022-05-13] MEDS: CIPROFLOXACIN 400 MG/D5W 200ML 200 ML 200 MG IVPB ×2 (05:27→13:56)
[2022-05-13] MEDS: cloNIDine HCL 0.2 MG TABLET PO ×2 (05:27→13:56)
[2022-05-13] MEDS: LEVOTHYROXINE SODIUM 75 MCG TABLET PO (05:27)
[2022-05-13 05:37] LABS: Basophils Absolute Auto 0.1 K/mm3 (0.0-0.1); Basophils Percent Auto 0.6 % (0.2-1.2); Hematocrit 41.9 % (37.0-47.0); Hemoglobin 14.4 g/dL (12.0-15.0); Immature Granulocyte Absolute 0.65 K/mm3 (0.00-0.031); Immature Granulocyte Percent A 6.1 % (0-0.5); Lymphocytes Percent Auto 8.5 % (18.3-44.2); Mean Corpuscular HGB Conc 34.4 g/dl (32-36); Mean Corpuscular Hemoglobin 30.4 pg (26-34); Mean Corpuscular Volume 88.6 fl (80-100); Mean Platelet Volume 10.2 fl (7.4-10.4); Monocytes Absolute Auto 0.4 K/mm3 (0.1-0.6); Monocytes Percent Auto 3.8 % (2.6-8.5); Neutrophils Absolute Auto 8.6 K/mm3 (1.3-6.7); Platelet Count Result 335 k/mm3 (150-375); Red Blood Count 4.73 M/mm3 (4.2-5.4); White Blood Count 10.6 K/mm3 (4.5-10.0)
[2022-05-13 05:58] LABS: Anion Gap 6 mmol/L (8-16); Blood Urea Nitrogen 19 mg/dL (7-17); Calcium 8.1 mg/dL (8.4-10.2); Carbon Dioxide 31 mmol/L (22-30); Chloride 96 mmol/L (98-107); Estimated CRCL calculation 129 ml/min; Estimated Glomerular Filt Rate > 60; Glucose 168 mg/dL (65-110); Potassium 4.6 mmol/L (3.4-5.0); Sodium 133 mmol/L (137-145)
[2022-05-13 06:11] LABS: Hemoglobin A1C 5.6 % (<5.7)
[2022-05-13 08:41] LABS: Glucose Point of Care 154 mg/dl (65-105)
[2022-05-13] MEDS: ENOXAPARIN 40 MG/0.4 ML SYRINGE SUB-Q (09:05)
[2022-05-13] MEDS: FUROSEMIDE 20 MG TABLET PO (09:05)
[2022-05-13] MEDS: CIPROFLOXACIN HC OTIC 10 ML 3 DROP LEFT EAR (09:05)
[2022-05-13] MEDS: methylPREDNISolone SOD SUCC 40 MG VIAL IV PUSH (09:05)
[2022-05-13] MEDS: lisinopriL 10 MG TABLET PO (09:05)
--- NOTE | 2022-05-13 12:17 | WPDNEUROPN ---
Progress Note: A&P Assessment and Plan (1) HZV (herpes zoster virus) post herpetic neuralgia: Code(s): B02.29 - Other postherpetic nervous system involvement Status: Suspected (2) Chondritis of external ear: Code(s): H61.039 - Chondritis of external ear, unspecified ear Status: Acute (3) Malignant otitis externa of left ear: Code(s): H60.22 - Malignant otitis externa, left ear Status: Acute Subjective Date/time seen: 05/13/22 12:17 Interval history: Follow-up, remains afebrile normotensive with normal CBC chemistry borderline sodium 133 and glucose 154 serology negative vessel as susana antibodies only 513 with IgM less than 0.90 MRI of the brain on 05/07 negative including cerebellar pontine angle internal auditory canals, and neck CTA is negative with no aneurysm. Venous Doppler studies normal, MRI of the orbits face neck with and without negative, MRV normal on clinical examination she is awake alert cooperative his speech nor dysphasic not dysarthric not dysphonic complains of left-sided facial discomfort able to move both upper and lower extremities and reflexes symmetrical plantars are downgoing she was advised all the studies are negative if she is considering the possibility of herpes with no rash the treatment will be continued as such she was discharge with addition of transient 3.75 mg at night, his special instruction about xylocaine viscous to use before eating and returns with the office for the follow-up Objective Data Vital Signs Vital Signs: Vital Signs - 24 hr 05/12/22 14:00 05/12/22 21:20 05/12/22 20:00 Temperature 36.2 C L 36.8 C Pulse Rate 74 64 64 Respiratory Rate 20 20 20 Blood Pressure 140/65 134/63 Pulse Oximetry 95 98 98 Oxygen Delivery Room Air 05/13/22 05:26 05/12/22 23:16 05/13/22 08:00 Temperature 36.6 C Pulse Rate 63 Respiratory Rate 20 Blood Pressure 149/76 H Pulse Oximetry 96 98 Oxygen Delivery Room Air Room Air Intake/Output Intake/Output: Intake & Output 05/10/22 05/11/22 05/12/22 05/13/22 23:59 23:59 23:59 23:59 Intake Total 2438 3264 3568 1532 Output Total 900 Balance 2438 3268 1958 1532 Meds/Results Medications: Active Medications Generic Name Dose Route Start Last Admin Trade Name Freq PRN Reason Stop Dose Admin Hydrocodone Bitart/Acetaminophen 1 tab 05/05/22 13:31 05/13/22 09:43 Hydrocodone/Acetaminophen (*Crx) 5-325 Mg Tablet PO 1 tab Q4H PRN Administration Pain Rated 4-10 Ciprofloxacin/Hydrocortisone 3 drop 05/07/22 21:00 05/13/22 09:05 Ciprofloxacin Hc Otic 10 Ml LEFT EAR 3 drop Q12HR TAWANDA Administration Clonidine HCl 0.2 mg 05/05/22 14:00 05/13/22 05:27 Clonidine Hcl 0.2 Mg Tablet PO 0.2 mg Q8H TAWANDA Administration Dextrose 12.5 gm 05/12/22 10:40 Dextrose 50% 25 Gm/50 Ml Syringe IV PUSH PRN PRN Hypoglycemia Protocol Enoxaparin Sodium 40 mg 05/09/22 09:00 05/13/22 09:05 Enoxaparin 40 Mg/0.4 Ml Syringe SUB-Q 40 mg DAILY TAWANDA Administration Furosemide 20 mg 05/05/22 13:15 05/13/22 09:05 Furosemide 20 Mg Tablet PO 20 mg QAM TAWANDA Administration Glucagon 1 mg 05/12/22 10:40 Glucagon For Inj 1 Mg Vial IM PRN PRN Hypoglycemia Protocol Glucose 15 gm 05/12/22 10:40 Glucose Oral Gel 15 Gm Of Glucse In 37.5 Gm Tube PO PRN PRN Hypoglycemia Protocol Ciprofloxacin/Dextrose 200 mls @ 200 mls/hr 05/07/22 14:00 05/13/22 06:39 Cipro 400 Mg/D5w 200 Ml IVPB Infused Q8H TAWANDA Infusion Acyclovir Sodium 800 mg/ 266 mls @ 266 mls/hr 05/07/22 10:00 05/13/22 10:06 Dextrose IVPB Infused Q8H TAWANDA Infusion Dextrose 1,000 mls @ 100 mls/hr 05/12/22 10:40 Dextrose 5% 1,000 Ml IVPB PRN PRN Hypoglycemia Protocol Insulin Aspart 2 - 5 units 05/12/22 12:00 05/13/22 09:01 Insulin Aspart (*Bkc) 100 Units/Ml SUB-Q Not Given TIDWM TAWANDA Protocol Levothy
[2022-05-13 12:20] LABS: Glucose Point of Care 204 mg/dl (65-105)
--- NOTE | 2022-05-13 12:24 | PM.DS ---
DS: Admitting Diagnosis Discharge Date 05/13/22 Admitting Diagnosis Left Facial Pain DS: Discharge Diagnosis Discharge Diagnosis (1) Blurry vision, left eye: Code(s): H53.8 - Other visual disturbances Status: Acute (2) Left facial pain: Code(s): R51.9 - Headache, unspecified Status: Acute (3) Hyperalgesia: Code(s): R20.8 - Other disturbances of skin sensation Status: Acute (4) Chondritis of external ear: Code(s): H61.039 - Chondritis of external ear, unspecified ear Status: Acute (5) HZV (herpes zoster virus) post herpetic neuralgia: Code(s): B02.29 - Other postherpetic nervous system involvement Status: Suspected DS: Summary Hospital Course Reason for hospitalization: left Facial Pain Hospital Course: 52-year-old female with past medical history significant for morbid obesity, hypertension, hypothyroidism.? Patient presented to the emergency room due to left hemicrania pain with extension into ear lobe and neck with redness, warmth, tenderness, upon touch in that area (1) Left facial pain: Head CT unremarkable with no acute intracranial process and no osseous abnormality with clear aerated spaces Cervical spine CT with no acute fracture, traumatic malalignment, or other abnormal findings CTA of the head and neck does not show any acute findings MRI of the brain with and without contrast does not show any acute findings Differential per ENT includes chondritis of external ear Continue with supportive care Pain medications, morphine and norco available Orbits of the face/neck MRI- Normal orbits Head and brain venography normal head MRV (2) Malignant otitis externa of left ear: ?Patient with significant left ear swelling of the auricle and canal Treated with IV cipro and Solumderol Seen by ENT as well. (3) HZV (herpes zoster virus) post herpetic neuralgia: Seems less likely given no vesicular rash or other cutaneous findings and not in typical dermatomal distribution Treated with Acyclovir while in hospital. (4) Hypertension Continue home clonidine, lisinopril, and furosemide (5) Hypothyroidism (acquired): TSH is low at 0.14and T4 is elevated at 2.2 Levothyroxine has been titrated down by primary Continue levothyroxine 175mcg Daily Recheck in 6 weeks (6) Lupus (systemic lupus erythematosus): Seems to be also playing a part with the pain Seems to be stable at this point. Continue current plan Will need to see a aerial hurricane hunter outpatient Discharged home in stable condition. Status at Discharge Overall status at discharge: patient is progressing back to baseline Time Spent with Patient Time attestation: Total time spent providing and/or coordinating discharge services: Time spent: Greater than 30 minutes Exam Narrative: General:? Obese, well-appearing 52-year-old female, sitting up in bed, comfortable, NARD Neuro: awake, alert and oriented x4, speech clear, CN II-XII intact. Sensation intact. No pronator drift, bilateral chocolate dipper strength equal. HEENMT: Left face is still slightly swollen, redness is better.? Under the jaw to the neck swelling is better.? PERRL observed Respiratory: clear to auscultation bilaterally, nonlabored breathing Cardio: regular rate, regular rhythm with S1-S2 Abdomen:? nondistended, normoactive bowel sounds, soft, nontender to palpation Extremities:2+ edema, no erythema, tenderness to palpation in the right calf, DP pulses 2+ bilaterally Skin: no rashes or lesions, warm and dry Psych: appropriate mood and affect, judgment and insight intact DS: Data Data Completed and Pending Labs on day of discharge: Labs from last 24 hours 05/13/22 05/13/22 05/13/22 12:17 08:30 05:27 WBC RBC Hgb Hct MCV MCH MCHC RDW Plt Count MPV Immature Gran % (Auto) Neut % (Auto) Lymph % (Auto) [place] % (Auto) Eos % (Auto) Baso % (Auto) Lymph # (Auto) [place] # (Auto)
[2022-05-13] MEDS: INSULIN ASPART (*BKC) 100 UNITS/ML SUB-Q (13:11)
[2022-05-13 14:00] VITALS: BP 137/53; PULSE 76; RESP 18; TEMP 37.2; O2SAT 97
== END 2022-05-13 15:33 | disposition home or self-care (01) | DRG 565 ==
LOC: ANHED 20:33 → ANH3MED 05-05 00:07
PROVIDERS: Nurse Practitioner; Physician Assistant; Admitting Provider Internal Medicine; Emergency Provider General Practice; PCP Family Medicine; Visit Provider Internal Medicine
DX: H61.032 Chondritis of left external ear (principal); B02.29 Other postherpetic nervous system involvement; Z68.43 Body mass index [BMI] 50.0-59.9, adult; H60.22 Malignant otitis externa, left ear; E66.01 Morbid (severe) obesity due to excess calories; E04.9 Nontoxic goiter, unspecified; E03.9 Hypothyroidism, unspecified; H91.92 Unspecified hearing loss, left ear; H53.8 Other visual disturbances; I10 Essential (primary) hypertension; M32.9 Systemic lupus erythematosus, unspecified; M79.662 Pain in left lower leg; R51.9 Headache, unspecified; R20.8 Other disturbances of skin sensation; Z90.49 Acquired absence of other specified parts of digestive tract; Z20.822 Contact with and (suspected) exposure to COVID-19; Z87.891 Personal history of nicotine dependence; Z79.82 Long term (current) use of aspirin
CPT/HCPCS: 36415; 70450; 70496; 70498; 70543; 70544; 70553; 71045; 72125; 73060; 73502; 80048; 80053; 81001; 82948; 83036; 83605; 83735; 85025; 85027; 85610; 85730; 86140; 86787; 87040; 87636; 93970; 96365; 96366; 96367; 96375; 96376; 99285; A9270; A9577; G0378; J0131; J0133; J0744; J1650; J1815; J1885; J2270; J2405; J2920; J2930; J7060; Q9967

== ENCOUNTER 2023-06-05 14:43 | Outpatient (CLI) | payer OTHER, SELFPAY ==
--- NOTE | ~2023-06-05 | MM_ITS ---
EXAMINATION: MM screening shazia BI w judie HISTORY: Screening mammogram TECHNIQUE: Craniocaudal and mediolateral oblique 3-D tomosynthesis images were obtained and synthetic 2-D images were generated. CAD analysis was submitted and interpreted. COMPARISON: No prior mammogram is available for comparison at this institution. BREAST PARENCHYMAL COMPOSITION: The breasts are almost entirely fatty. FINDINGS: There is no evidence of suspicious mass, calcification, or architectural distortion to sugg est malignancy in either breast IMPRESSION: 1. No mammographic evidence of malignancy. 2. Recommend routine screening mammography in one year. BI-RADS Category 1: Negative Reviewed, dictated and finalized at location A.
== END 2023-06-05 14:44 | disposition home or self-care (01) ==
LOC: ANHIMG 14:51
PROVIDERS: PCP Family Medicine; Visit Provider Physician Assistant
DX: Z12.31 Encounter for screening mammogram for malignant neoplasm of breast (principal)
CPT/HCPCS: 77063; 77067

== ENCOUNTER 2023-10-26 11:27 | Outpatient (CLI) | payer OTHER, SELFPAY ==
--- NOTE | ~2023-10-26 | XR_ITS ---
EXAMINATION: XR chest 2V DATE: 10/26/2023 11:49 INDICATION: Dyspnea, unspecified. TECHNIQUE: Frontal and lateral views of the chest were obtained. COMPARISON: Chest single view 05/04/2022 FINDINGS: There is no pneumonia, pleural effusion, or pneumothorax. Cardiomegaly is noted. Surgical c lips in the right upper quadrant are likely from cholecystectomy. IMPRESSION: 1. Cardiomegaly. Reviewed, dictated and finalized at location A. IMPRESSION: 1. Cardiomegaly.
== END 2023-10-26 11:28 | disposition home or self-care (01) ==
LOC: ANHIMG 11:30
PROVIDERS: PCP Family Medicine; Visit Provider Physician Assistant
DX: R06.00 Dyspnea, unspecified (principal); I51.7 Cardiomegaly
CPT/HCPCS: 71046

== ENCOUNTER 2024-12-12 19:04 | Emergency (ER) | payer OTHER, SELFPAY ==
--- NOTE | ~2024-12-12 | CT_ITS ---
CTA CHEST CLINICAL HISTORY: back pain shortness of breath eval for PE . COMPARISON: Chest x-rays same day TECHNIQUE: Helical CTA performed from thoracic inlet to upper abdomen 100 mL Omnipaque 350 Coronal, sagittal reformats. Multiplanar MIPS CT images acquired with automatic exposure control for dose reduction DLP: 1001 mGy-cm FINDINGS: Pulmonary arteries: No PE. Thoracic Aorta: No dissection or aneurysm. Heart/pericardium: Coronary artery calcifications. RV/LV ratio: Normal. Lungs/Pleura: Mosaic attenuation. Tracheobronchial tree: Patent. Nodes: No enlarged nodes. Bones: No acute bony abnormality. Soft tissues: Unremarkable. Visualized upper abdomen: Hepatomegaly, with steatosis. IMPRESSION: 1. No PE or other acute cardiopulmonary findings. Reviewed, dictated and finalized at location R.
--- NOTE | ~2024-12-12 | XR_ITS ---
Examination: XR chest 2V Clinical History: sob Comparison: 10/26/2023 Technique: PA and Lateral Findings: Cardiomediastinal silhouette normal size and configuration. Lungs clear. No acute bony abnormality. IMPRESSION: 1. No acute cardiopulmonary findings. Reviewed, dictated and finalized at location R.
--- NOTE | 2024-12-12 19:42 | ECG_ITS ---
Test Date: 2024-12-12 21:48:30 Measurements Intervals [place] Rate: 71 P: 46 CA: 173 QRS: -5 QRSD: 95 T: 44 QT: 390 QTc: 425 Interpretive Statements SINUS RHYTHM DELAYED PRECORDIAL R/S TRANSITION CONSIDER INFERIOR INFARCT, AGE INDETERMINATE NONSPECIFIC ST-T WAVE ABNORMALITY- ANT/HIGH LAT LEADS ABNORMAL ECG No previous ECG available for comparison Electronically Signed On 12-13-2024 06:13:11 CDT by Gerard Cartagena D.O.
[2024-12-12 19:43] VITALS: BP 169/86; PULSE 68; RESP 28; TEMP 36.7; O2SAT 100
[2024-12-12 21:50] VITALS: BP 160/89; PULSE 74; RESP 21; O2SAT 100
[2024-12-12 22:04] LABS: Hematocrit 40.3 % (37.0-47.0); Hemoglobin 13.3 g/dL (12.0-15.0); Immature Granulocyte Percent A 0.2 % (0-0.5); Lymphocytes Absolute Auto 1.59 K/mm3 (0.9-3.2); Mean Corpuscular HGB Conc 33.0 g/dl (32-36); Mean Corpuscular Hemoglobin 29.0 pg (26-34); Mean Corpuscular Volume 87.8 fl (80-100); Nucleated Red Blood Cells Absolute Auto 0.000 K/mm3 (0.0-0.012); Nucleated Red Blood Cells Perc 0.0 % (0.0-0.2); Platelet Count Result 274 k/mm3 (150-375); Red Blood Count 4.59 M/mm3 (4.2-5.4); White Blood Count 6.3 K/mm3 (4.5-10.0)
[2024-12-12 22:17] LABS: Alanine Aminotransferase 19 U/L (6-35); Albumin Level 4.5 g/dL (3.5-5.1); Alkaline Phosphatase 133 U/L (38-126); Anion Gap 8 mmol/L (4-12); Aspartate Amino Transferase 25 U/L (14-36); Bilirubin,Total 1.2 mg/dL (0.2-1.3); Blood Urea Nitrogen 12 mg/dL (7-17); Calcium 9.0 mg/dL (8.4-10.2); Carbon Dioxide 32 mmol/L (22-30); Chloride 96 mmol/L (98-107); Estimated CRCL calculation 95 ml/min; Estimated Glomerular Filt Rate > 60; Glucose 103 mg/dL (65-110); Potassium 3.6 mmol/L (3.4-5.0); Sodium 136 mmol/L (137-145); Total Protein 7.8 g/dL (6.3-8.2)
[2024-12-13 00:20] VITALS: BP 154/76; PULSE 82; RESP 17; O2SAT 100
[2024-12-13 00:34] VITALS: PULSE 78; RESP 20
[2024-12-13] MEDS: IPRATROPIUM 0.5 MG/ALBUTEROL SULFATE 2.5 MG (BASE) AMPUL.NEB 3 ML INHALATION (00:34)
[2024-12-13 00:44] VITALS: PULSE 80; RESP 20
[2024-12-13 00:56] LABS: INR 1.0; Prothrombin Time 13.0 Seconds (11.1-14.7)
[2024-12-13 00:57] LABS: Partial Thromboplastin Time 29.6 Seconds (22.3-36.8)
[2024-12-13 01:08] LABS: Procalcitonin 0.1 ng/mL
[2024-12-13 01:16] LABS: NT Pro B Type Natriuretic Pept 39 pg/mL (19.9-100); Troponin I < 0.012 ng/mL (0.000-0.034)
[2024-12-13 01:22] LABS: Influenza A QL RT-PCR Negative (Negative); Influenza B QL RT-PCR Negative (Negative); RSV RNA, RT-PCR Negative (Negative); SARS-CoV-2 RNA PCR Negative (Negative)
[2024-12-13 01:23] LABS: Thyroid Stimulating Hormone Reflex 1.430 uIU/mL (0.465-4.68)
--- NOTE | 2024-12-13 03:15 | ED_ITS ---
HPI - General Adult General Chief complaint: Shortness of Breath/Dyspnea Stated complaint: SOB hx asthma Time Seen by Provider: 12/13/24 00:02 History of Present Illness HPI narrative: Patient 54-year-old female who presents emergency department with chief complaint of shortness of breath. Patient reports that she has history of asthma also history of hypertension and morbid obesity. The patient reports that she has noticed whenever she lays flat she gets more short of breath and reports that she has been using her inhaler more frequently. The patient denies fever does report that her legs have been a little bit more swollen than normal. Related Data Home Medications ?Medication ?Instructions ?Recorded ?Confirmed ?Last Taken ?Type levothyroxine 50 mcg tablet 300 mcg PO DAILY 10/19/24 11/23/24 Unknown History Allergies Allergy/AdvReac Type Severity Reaction Status Date / Time aspirin AdvReac Unknown Nausea and Verified 10/19/24 09:49 Vomiting Review of Systems 2 Review of Systems: A 10 system review of systems was completed on the patient and is negative except for what is stated in the HPI. Nursing and ancillary documentation was reviewed. FORMERLY [facility], 1928–1983 Past Medical History Medical History Goiter Hypertension Lymphedema Lupus (systemic lupus erythematosus) Postcholecystectomy diarrhea Surgical History Surgical History Hx laparoscopic cholecystectomy Family History Family History Mother Hypertension Family history of elevated blood lipids Family history of diabetes mellitus in first degree relative Family history of renal failure, Onset Age: 79 Patient's mother is Social History Social History Social History: Smoking packs per day: 2 Smoking cigarettes per day: 40.0 Smoking status: Former smoker Tobacco type: cigarettes Second hand tobacco smoke exposure: No Smoking end date: 03/09/15 Alcohol intake: never Substance use: never Substance use type: does not use Do You Feel Safe in your Home?: Yes Lack of Transportation: No Lack of Food: Never True Current Housing: I Have Housing Concerned About Future Housing: No Difficulty Paying Gas/Electric Bills: No Difficulty Paying for Meds: No Currently Unemployed: No Education: High School Diploma/GED Difficulty w/ Childcare or Family Care: No Living arrangements: with family Occupation/Education: unemployed Additional occupation/education comments: Disabled Gender identity (if verbalized by the patient): Female Sexual Orientation (if Verbalized by the Patient): Straight or Heterosexual Spiritual care concerns: No Exam 2 Narrative: GENERAL: Well-appearing, well-nourished, and in no acute distress. HEAD: Normocephalic, atraumatic. EYES: PERRLA and EOMI. ENT: Nares clear, no rhinorrhea or epistaxis. Mucous membranes moist. NECK: Supple. CHEST: Clear to auscultation. No respiratory distress. HEART: Regular rate and rhythm. No murmur heard. Normal peripheral pulses. ABDOMEN: Soft, nontender, nondistended, normal active bowel sounds. EXTREMITIES: Normal range of motion. 1+ edema. SKIN: Warm, dry, no rash. NEURO: No focal deficits. Alert and oriented x3. PSYCH: Normal mood and affect. Course Vital Signs Vital signs: Vital Signs Temperature 36.7 C 12/12/24 19:43 Pulse Rate 68 12/12/24 19:43 Respiratory Rate 28 H 12/12/24 19:43 Blood Pressure 169/86 H 12/12/24 19:43 Pulse Oximetry 100 12/12/24 19:43 Oxygen Delivery Room Air 12/12/24 19:43 Temperature 36.7 C 12/12/24 19:43 Pulse Rate 80 12/13/24 00:44 Respiratory Rate 20 12/13/24 00:44 Blood Pressure 154/76 H 12/13/24 00:20 Pulse Oximetry 100 12/13/24 00:20 Oxygen Delivery Room Air 12/12/24 21:50 Medical Decision Making [facility] Narrative Medical decision making narrative: Differential diagnosis includes pneumonia, CHF, pulmonary embolism, ACS Laboratory studies were obtained on the patient showed a CBC with normal white blood cell count normal hemoglobin electrolytes showed normal renal function with a BUN of 12 and a creatinine is 0.87 troponin was negative BNP was negative TSH was within normal limits procalcitonin 0.1 COVID flu RSV were negative Chest x-ray showed no focal infiltrate CTA chest showed no large pulmonary embolism small airway disease and possible bronchiolitis Vital Signs Vital Signs: Vital Signs Temperature 36.7 C 12/12/24 19:43 Pulse Rate 68 12/12/24 19:43 Respiratory Rate 28 H 12/12/24 19:43 Blood Pressure 169/86 H 12/12/24 19:43 Pulse Oximetry 100 12/12/24 19:43 Oxygen Delivery Room Air 12/12/24 19:43 Temperature 36.7 C 12/12/24 19:43 Pulse Rate 80 12/13/24 00:44 Respiratory Rate 20 12/13/24 00:44 Blood Pressure 154/76 H 12/13/24 00:20 Pulse Oximetry 100 12/13/24 00:20 Oxygen Delivery Room Air 12/12/24 21:50 Lab Data 12/12/24 21:57 12/12/24 21:57 Labs: Lab Results 12/12/24 12/12/24 12/13/24 Range/Units 21:52 21:57 00:29 WBC 6.3 (4.5-10.0) K/mm3 RBC 4.59 (4.2-5.4) M/mm3 Hgb 13.3 (12.0-15.0) g/dL Hct 40.3 (37.0-47.0) % MCV 87.8 (80-100) fl MCH 29.0 (26-34) pg MCHC 33.0 (32-36) g/dl RDW 12.5 (11.5-14.5) % Plt Count 274 (150-375) k/mm3 MPV 9.8 (7.4-10.4) fl Immature Gran % (Auto) 0.2 (0-0.5) % Neut % (Auto) 63.0 (45.5-73.1) % Lymph % (Auto) 25.3 (18.3-44.2) % [place] % (Auto) 7.6 (2.6-8.5) % Eos % (Auto) 3.3 (0-4.4) % Baso % (Auto) 0.6 (0.2-1.2) % Lymph # (Auto) 1.59 (0.9-3.2) K/mm3 [place] # (Auto) 0.5 (0.1-0.6) K/mm3 Eos # (Auto) 0.2 (0-0.3) K/mm3 Baso # (Auto) 0.0 (0.0-0.1) K/mm3 Abs Immat Gran (auto) 0.01 (0.00-0.031) K/mm3 Absolute Neuts (auto) 4.0 (1.3-6.7) K/mm3 Absolute Nucleated RBC 0.000 (0.0-0.012) K/mm3 Nucleated RBC % 0.0 (0.0-0.2) % PT 13.0 (11.1-14.7) Seconds INR 1.0 APTT 29.6 (22.3-36.8) Seconds Sodium 136 L (137-145) mmol/L Potassium 3.6 (3.4-5.0) mmol/L Chloride 96 L (98-107) mmol/L Carbon Dioxide 32 H (22-30) mmol/L Anion Gap 8 (4-12) mmol/L BUN 12 D (7-17) mg/dL Creatinine 0.87 (0.7-1.0) mg/dL Estim Creat Clear Calc 95 ml/min Estimated GFR > 60 (59 - ) Glucose 103 (65-110) mg/dL Calcium 9.0 (8.4-10.2) mg/dL Total Bilirubin 1.2 (0.2-1.3) mg/dL AST 25 (14-36) U/L ALT 19 (6-35) U/L Alkaline Phosphatase 133 H (38-126) U/L Troponin I < 0.012 (0.000-0.034) ng/mL NT-Pro-B Natriuret Pep 39 (19.9-100) pg/mL Total Protein 7.8 (6.3-8.2) g/dL Albumin 4.5 (3.5-5.1) g/dL Procalcitonin 0.1 ng/mL TSH (Reflex) 1.430 (0.465-4.68) uIU/mL Influenza A (RT-PCR) Negative (Negative) Influenza B (RT-PCR) Negative (Negative) RSV (RT-PCR) Negative (Negative) SARS-CoV-2 RNA (RT-PCR) Negative (Negative) Discharge Plan Discharge Clinical Impression: Bronchitis Patient Disposition: Home Condition: Stable Instructions: Antibiotic Form, Acute Bronchitis (ED) Patient Language: Marshallese Prescriptions: New prednisone 20 mg tablet 40 mg PO DAILY 5 Days Qty: 10 0RF No Action azelastine 137 mcg (0.1 %) aerosol,spray 137 mcg intranasal Q12H Qty: 30 0RF Rx Instructions: administer into each nostril levothyroxine 50 mcg tablet 300 mcg PO DAILY liothyronine 5 mcg tablet 5 mcg PO BID Qty: 60 0RF ibuprofen 600 mg tablet 600 mg PO TID PRN (Reason: pain) Qty: 30 0RF escitalopram oxalate 20 mg tablet See Rx Instructions .ROUTE .COMPLEX Qty: 90 1RF Dose Instruction: Take 1 tablet by mouth once daily Rx Instructions: Take 1 tablet by mouth once daily hydrochlorothiazide 25 mg tablet 25 mg PO DAILY Qty: 90 2RF albuterol sulfate 90 mcg/actuation HFA aerosol inhaler See Rx Instructions .ROUTE .COMPLEX Qty: 7 2RF Dose Instruction: INHALE 1 PUFF BY MOUTH EVERY 4 HOURS NEEDED FOR SHORTNESS OF BREATH FOR WHEEZING Rx Instructions: INHALE 1 PUFF BY MOUTH EVERY 4 HOURS NEEDED FOR SHORTNESS OF BREATH FOR WHEEZING lisinopril 40 mg tablet 40 mg PO DAILY Qty: 90 1RF buspirone 15 mg tablet See Rx Instructions .ROUTE .COMPLEX Qty: 90 2RF Dose Instruction: TAKE 1 TABLET BY MOUTH THREE TIMES DAILY Rx Instructions: TAKE 1 TABLET BY MOUTH THREE TIMES DAILY furosemide 20 mg tablet See Rx Instructions .ROUTE .COMPLEX PRN (Reason: edema) Qty: 90 0RF Dose Instruction: TAKE 1 TABLET BY MOUTH IN THE MORNING Rx Instructions: TAKE 1 TABLET BY MOUTH IN THE MORNING PRN; diphenoxylate-atropine [Lomotil] 2.5-0.025 mg tablet 1 tablet PO TID PRN (Reason: diarrhea) Qty: 90 0RF Follow-up/Referrals: Yon Villagran MD [Primary Care Provider, Family Practice]
== END 2024-12-13 04:35 | disposition home or self-care (01) ==
PROVIDERS: Emergency Provider Emergency Medicine; PCP Family Medicine
DX: J40 Bronchitis, not specified as acute or chronic (principal); Z20.822 Contact with and (suspected) exposure to COVID-19; I10 Essential (primary) hypertension; M32.9 Systemic lupus erythematosus, unspecified; I89.0 Lymphedema, not elsewhere classified; Z90.49 Acquired absence of other specified parts of digestive tract; Z87.891 Personal history of nicotine dependence; R94.31 Abnormal electrocardiogram [ECG] [EKG]
CPT/HCPCS: 36415; 71046; 71275; 80053; 83880; 84145; 84443; 84484; 85025; 85610; 85730; 87637; 93005; 94640; 99284; J7512; Q9967